=== PATIENT | female | born 1965 | race Caucasian/White ===

== ENCOUNTER 2016-12-29 18:09 | Observation (INO) | payer OTHER ==
[~2016-12-29] VITALS: Ht 157.5 cm; Wt 63.5 kg
[~2016-12-29 18:09] MED LIST: BACL10TA4 PO; GABA400C PO; HUM7525 SUBQ; METF500T PO; TRAM50TA1 PO; ZOLP5TAB1 PO
[2016-12-29 18:20] VITALS: BP 154/91
[2016-12-29 18:39] LABS: BASOPHILS # (AUTO) 0.3 K/uL (0.00-0.22); BASOPHILS % (AUTO) 2.1 % (0.0-2.0); EOSINOPHILS # (AUTO) 0.1 K/uL (0-0.4); EOSINOPHILS % (AUTO) 1.1 % (0.0-4.0); HEMATOCRIT 37.6 % (36-48); HEMOGLOBIN 12.5 g/dL (12.0-16.0); LYMPHOCYTES % (AUTO) 31.3 % (20.5-51.1); MEAN CORPUSCULAR HEMOGLOBIN 31 pg (27-31); MEAN CORPUSCULAR HGB CONC 33 g/dL (33-37); MEAN CORPUSCULAR VOLUME 92 fL (80-94); MONOCYTES # (AUTO) 0.5 K/uL (0.8-1.0); NEUTROPHILS # (AUTO) 7.8 K/uL (1.8-7.7); NEUTROPHILS % (AUTO) 61.5 % (42.2-75.2); PLATELET COUNT (AUTO) 463 K/uL (140-450); RED BLOOD CELL COUNT(AUTO) 4.09 MIL/uL (4.20-5.40); RED CELL DISTRIBUTION WIDTH 12.9 % (11.6-13.7); WHITE BLOOD COUNT (AUTO) 12.7 K/uL (4.8-10.8)
[2016-12-29 18:50] LABS: ANION GAP 12.6 (8-16); CARBON DIOXIDE 25.5 mmol/L (21-32); CREATININE 0.8 mg/dL (0.6-1.3); POTASSIUM 3.1 mmol/L (3.5-5.1)
[2016-12-29 18:56] LABS: ALBUMIN 3.4 g/dL (3.4-5.0); TOTAL BILIRUBIN 0.3 mg/dL (0.0-1.0)
[2016-12-29 18:57] LABS: PROTHROMBIN TIME 10.8 secs (10.8-13.4)
[2016-12-29] MEDS ORDERED: ASPIRIN 81 MG TAB.CHEW PO ONE (20:05)
[2016-12-29] MEDS ORDERED: CLOPIDOGREL 75 MG TAB PO ONE (20:05)
[2016-12-29] MEDS ORDERED: NACL 0.9% 1,000 ML IV ONE (20:05)
[2016-12-29] MEDS ORDERED: METOPROLOL 25 MG TAB PO ONE (20:40)
[2016-12-29] MEDS ORDERED: NITROGLYCERIN 2% 1 GM PKT TP SCH (20:45)
[2016-12-29] MEDS ORDERED: ACETAMINOPHEN 325 MG TAB PO PRN (20:45)
[2016-12-29] MEDS ORDERED: ONDANSETRON 4 MG/2 ML VIAL IVP PRN (20:45)
[2016-12-29] MEDS ORDERED: HYDROcodone/APAP 5/325 MG 1 TAB TAB PO PRN ×2 (20:45)
[2016-12-29] MEDS ORDERED: LORazepam 2 MG/ML VIAL IVP PRN (20:45)
[2016-12-29 21:53] VITALS: BP 150/94
[2016-12-29] MEDS: ALBUTEROL 0.083% 2.5 MG/3 ML NEBU INH SCH (22:11)
[2016-12-29 23:06] VITALS: BP 151/84
[2016-12-30] MEDS: ALBUTEROL 0.083% 2.5 MG/3 ML NEBU INH SCH ×2 (01:40→07:04)
[2016-12-30] MEDS: IPRATROPIUM 0.02% 0.5 MG/2.5 ML NEBU IH SCH ×3 (01:40→13:00)
[2016-12-30 02:57] LABS: CREATINE KINASE MB 0.1 ng/mL (0-3.6)
[2016-12-30 04:55] VITALS: BP 116/65
[2016-12-30 06:09] LABS: BASOPHILS # (AUTO) 0.2 K/uL (0.00-0.22); BASOPHILS % (AUTO) 1.5 % (0.0-2.0); EOSINOPHILS # (AUTO) 0.2 K/uL (0-0.4); EOSINOPHILS % (AUTO) 1.2 % (0.0-4.0); HEMATOCRIT 33.2 % (36-48); HEMOGLOBIN 11.3 g/dL (12.0-16.0); LYMPHOCYTES # (AUTO) 3.2 K/uL (2.5-16.5); LYMPHOCYTES % (AUTO) 23.5 % (20.5-51.1); MEAN CORPUSCULAR HEMOGLOBIN 31 pg (27-31); MEAN CORPUSCULAR HGB CONC 34 g/dL (33-37); MEAN CORPUSCULAR VOLUME 92 fL (80-94); MONOCYTES # (AUTO) 0.9 K/uL (0.8-1.0); MONOCYTES % (AUTO) 6.5 % (1.7-9.3); NEUTROPHILS # (AUTO) 9.1 K/uL (1.8-7.7); NEUTROPHILS % (AUTO) 67.3 % (42.2-75.2); PLATELET COUNT (AUTO) 373 K/uL (140-450); RED BLOOD CELL COUNT(AUTO) 3.62 MIL/uL (4.20-5.40); RED CELL DISTRIBUTION WIDTH 13.4 % (11.6-13.7); WHITE BLOOD COUNT (AUTO) 13.6 K/uL (4.8-10.8)
[2016-12-30 06:46] LABS: ALBUMIN 2.5 g/dL (3.4-5.0); ANION GAP 10.7 (8-16); CARBON DIOXIDE 23.4 mmol/L (21-32); CREATININE 0.8 mg/dL (0.6-1.3); MAGNESIUM 1.7 mg/dL (1.8-2.4); POTASSIUM 3.1 mmol/L (3.5-5.1); TOTAL BILIRUBIN 0.2 mg/dL (0.0-1.0)
[2016-12-30] MEDS ORDERED: DEXTROSE 50% 50 ML SYR IVP PRN (07:55)
[2016-12-30] MEDS ORDERED: INSULIN LISPRO SLIDING SCALE 100 UNITS/ML VIAL SUBQ PRN (07:55)
[2016-12-30 08:00] VITALS: BP 127/73
[2016-12-30] MEDS: MORPHINE SULFATE 2 MG/ML SYR IVP PRN ×2 (08:24→14:57)
[2016-12-30] MEDS ORDERED: INSULIN LISPRO 100 UNITS/ML VIAL SUBQ SCH ×2 (09:00→12:00)
[2016-12-30] MEDS ORDERED: POTASSIUM CHLORIDE 10 MEQ TABER PO SCH (09:00)
[2016-12-30] MEDS ORDERED: ENOXAPARIN 40 MG/0.4 ML SYR SUBQ SCH (09:00)
[2016-12-30] MEDS ORDERED: MAGNESIUM OXIDE 400 MG TAB PO SCH (09:00)
[2016-12-30] MEDS ORDERED: ZOLPIDEM 5 MG TAB PO PRN (10:00)
[2016-12-30] MEDS ORDERED: GABAPENTIN 100 MG CAP PO PRN (10:00)
[2016-12-30] MEDS ORDERED: traMADol 50 MG TAB PO PRN (10:00)
[2016-12-30] MEDS ORDERED: BLOOD GLUCOSE MONITORING 1 DEV DEV FS SCH (11:30)
[2016-12-30 12:00] VITALS: BP 111/61
[2016-12-30] MEDS ORDERED: NACL 0.9% IRR 250 ML BOTTLE IR SCH (13:00)
[2016-12-30 13:33] VITALS: BP 126/67
[2016-12-30] MEDS ORDERED: INFLUENZA VIRUS VACCINE QUAD 0.5 ML SYR IMVAC SCH (15:10)
[2016-12-30 16:07] VITALS: BP 134/73
[2016-12-30] MEDS ORDERED: INSULIN NPH HUM/REG INSULIN HM 100 UNIT/ML 10 ML VIAL SUBQ SCH (21:00)
[2016-12-30] MEDS ORDERED: INSULIN LISPRO SUBQ SCH (21:00)
[2016-12-30] MEDS ORDERED: metFORMIN 500 MG TAB PO SCH (21:00)
[2016-12-30] MEDS ORDERED: AMOXIL/CLAVULANATE 875/125 MG 1 TAB PO SCH (21:00)
[2016-12-30] MEDS ORDERED: [UNRECOGNIZED DRUG - OTHER] SUBQ SCH (21:00)
[2016-12-30] MEDS ORDERED: INSULIN LISPRO PROTAMINE SUBQ SCH (21:00)
[2016-12-31] MEDS ORDERED: REGADENOSON 0.4 MG/5 ML SYR IV SCH (09:00)
== END 2016-12-30 16:25 | disposition home or self-care (01) ==
LOC: MED 18:09 → MTU 20:48
PROVIDERS: ADMIT Hospitalist; ATTEND Hospitalist
DX: R07.2 Precordial pain (principal); D72.829 Elevated white blood cell count, unspecified; S21.202A Unspecified open wound of left back wall of thorax without penetration into thoracic cavity, initial encounter; E11.9 Type 2 diabetes mellitus without complications; E78.5 Hyperlipidemia, unspecified; E87.6 Hypokalemia; N25.89 Other disorders resulting from impaired renal tubular function; F17.210 Nicotine dependence, cigarettes, uncomplicated; I10 Essential (primary) hypertension
CPT/HCPCS: 36415; 71020; 80053; 82550; 82553; 82948; 83735; 83880; 84484; 85025; 85610; 85730; 87070; 87081; 87186; 90471; 90658; 93005; 93017; 93307; 94640; 94760; 96372; 96374; 96376; 99285; G0378; J1650; J1815; J2270; J7030; J7613; J7644; J2785

== ENCOUNTER 2017-01-17 13:16 | Inpatient (IN) | payer OTHER ==
[~2017-01-17] VITALS: Ht 157.5 cm; Wt 63.0 kg
[2017-01-17 13:29] VITALS: BP 158/94
--- NOTE | 2017-01-17 13:45 | NUR ---
PATIENT TO BED 8 AT THIS TIME.
--- NOTE | 2017-01-17 13:48 | NUR ---
Patient being evaluated by physician at bedside.
[2017-01-17] MEDS ORDERED: NACL 0.9% 1,000 ML IV ONE (14:15)
[2017-01-17] MEDS ORDERED: INSULIN HUMAN REGULAR 100 UNITS/ML 10 ML VIAL IVP ONE (14:15)
[2017-01-17 14:21] LABS: BASOPHILS # (AUTO) 0.3 K/uL (0.00-0.22); EOSINOPHILS # (AUTO) 0.2 K/uL (0-0.4); HEMATOCRIT 38.6 % (36-48); HEMOGLOBIN 12.7 g/dL (12.0-16.0); LYMPHOCYTES # (AUTO) 3.6 K/uL (2.5-16.5); MEAN CORPUSCULAR HEMOGLOBIN 29 pg (27-31); MEAN CORPUSCULAR HGB CONC 33 g/dL (33-37); MEAN CORPUSCULAR VOLUME 90 fL (80-94); MONOCYTES # (AUTO) 0.4 K/uL (0.8-1.0); NEUTROPHILS # (AUTO) 5.4 K/uL (1.8-7.7); PLATELET COUNT (AUTO) 373 K/uL (140-450); RED CELL DISTRIBUTION WIDTH 13.3 % (11.6-13.7); WHITE BLOOD COUNT (AUTO) 9.9 K/uL (4.8-10.8)
[2017-01-17 14:44] LABS: ALBUMIN 3.3 g/dL (3.4-5.0); ANION GAP 16.6 (8-16); CARBON DIOXIDE 20.9 mmol/L (21-32); CREATININE 0.9 mg/dL (0.6-1.3); POTASSIUM 3.5 mmol/L (3.5-5.1); TOTAL BILIRUBIN 0.2 mg/dL (0.0-1.0)
[2017-01-17] MEDS ORDERED: VANCOMYCIN 1,000 MG in DEXTROSE 5% 250 ML IV ONE (14:45)
[2017-01-17] MEDS ORDERED: PIPERACILLIN/TAZOBACTAM 3.375 GM in DEXTROSE 5% 50 ML IV ONE (14:45)
[2017-01-17] MEDS ORDERED: MORPHINE SULFATE 4 MG/ML SYR IVP ONE (14:55)
[2017-01-17] MEDS ORDERED: PIPERACILLIN/TAZOBACTAM 3.375 GM VIAL IV ONE (15:09)
[2017-01-17] MEDS ORDERED: VANCOMYCIN 1,000 MG VIAL ONE (15:10)
--- NOTE | 2017-01-17 15:55 | NUR ---
PT AMBULATORY TO RESTROOM WITH STEADY GAIT
[2017-01-17] MEDS: NACL 0.9% 1,000 ML IV SCH (16:01)
[2017-01-17] MEDS ORDERED: ACETAMINOPHEN 325 MG TAB PO PRN (16:05)
[2017-01-17] MEDS ORDERED: ONDANSETRON 4 MG/2 ML VIAL IVP PRN (16:05)
[2017-01-17] MEDS ORDERED: INSULIN LISPRO SLIDING SCALE 100 UNITS/ML VIAL SUBQ PRN (16:15)
--- NOTE | 2017-01-17 16:25 | NUR ---
Pt report given to ANA PITTMAN. Transfer of care at this time TO TELE RM 113
--- NOTE | 2017-01-17 16:45 | NUR ---
RECEIVED REPORT FROM ER NURSE. PT ARRIVED TO UNIT VIA GURNEY ACCOMPANIED BY RN, RISA, AND PT'S DAUGHTER. PT ARRIVED IN STABLE CONDITION. VS: BP 131/74 P 82 O2 SAT 99% ON RA, RR17, TEMP 98.4 F. ID BAND APPLIED. TELE MONITOR APPLIED. BED IN LOW POSITION, WHEELS LOCKED. INSTRUCTED PT DIAGNOSTIC RADIOLOGIC TECHNOLOGIST LIGHT USE. PT VERBALIZED UNDERSTANDING. WILL CONTINUE TO MONITOR.
[2017-01-17] MEDS ORDERED: DEXTROSE 50% 50 ML SYR IVP PRN (17:25)
[2017-01-17 17:42] VITALS: BP 131/74
--- NOTE | 2017-01-17 18:30 | NUR ---
CHECKED ON PT IN ROOM. DAUGHTER AT BEDSIDE. HISTORY WAS OBTAINED BY PT. BED IN LOW POSITION, CALL LIGHT WITHIN REACH. PT HAS NO COMPLAINTS AT THIS TIME WILL CONTINUE TO MONITOR.
--- NOTE | 2017-01-17 19:25 | NUR ---
ENDORSED PT TO PILOT FUEL ENGINEER NURSE NIKI AT BEDSIDE FOR CONTINUITY OF CARE. PT IS LYING IN BED. DAUGHTER IS AT BEDSIDE. PT IN STABLE CONDITION.
--- NOTE | 2017-01-17 19:26 | NUR ---
RECEIVED PT AWAKE ON BED, COMPLAINING OF BACK PAIN, WILL MEDICATE PRN, IVF INFUSING WELL, PLAN OF CARE DISCUSS, SAFETY MEASURES IN PLACE, CALL LIGHT WITHIN REACH.
[2017-01-17] MEDS: MORPHINE SULFATE 4 MG/ML SYR IVP PRN (19:34)
[2017-01-17] MEDS: INSULIN LISPRO SLIDING SCALE 100 UNITS/ML VIAL SUBQ PRN (20:13)
--- NOTE | 2017-01-17 20:30 | NUR ---
BLOOD SUGAR CHECKED WITH 374 RESULT, COVERAGE GIVEN, SNACK PROVIDED, ALL NEEDS ATTENDED.
[2017-01-17] MEDS ORDERED: PIPERACILLIN/TAZOBACTAM 3.375 GM in DEXTROSE 5% 50 ML IV SCH (21:00)
[2017-01-17] MEDS: BLOOD GLUCOSE MONITORING 1 DEV DEV FS SCH (21:04)
--- NOTE | 2017-01-17 21:30 | NUR ---
PT AMBULATORY TO BR WITH STEADY GAIT AND VOIDED FREELY, MONITORED CLOSELY.
[2017-01-17 23:07] LABS: APPEARANCE,URINE CLEAR (CLEAR); BILIRUBIN,URINE NEGATIVE (NEGATIVE); BLOOD, URINE NEGATIVE (NEGATIVE); COLOR,URINE YELLOW (YELLOW); LEUKOCYTE ESTERASE ,URINE NEGATIVE (NEGATIVE); NITRITE, URINE NEGATIVE (NEGATIVE); UGLUCOSE 2+ (NEGATIVE)
[2017-01-17 23:31] LABS: RBC,URINE NONE SEEN /HPF (0-5); WBC,URINE 0-5 (RARE) /HPF (0-5); YEAST,URINE Rare /HPF (None Seen)
[2017-01-18] VITALS: BP 122/69
[2017-01-18] MEDS: MORPHINE SULFATE 4 MG/ML SYR IVP PRN (01:49)
[2017-01-18] MEDS: PIPER/TAZO 3.375GM/D5W PREMIX 50 ML IV SCH ×3 (01:49→17:13)
--- NOTE | 2017-01-18 01:50 | NUR ---
PT IN PAIN, MEDICATED PRN WITH MORPHINE IVP, DRESSING CHANGE DONE TO OPEN WOUND TO THE BACK, DUE ZOSYN IVPB ADMINISTERED, MONITORED CLOSELY.
[2017-01-18] MEDS: NACL 0.9% 1,000 ML IV SCH ×4 (02:01→18:19)
[2017-01-18] MEDS: MORPHINE SULFATE 2 MG/ML SYR IVP PRN ×4 (05:53→20:27)
[2017-01-18] MEDS: INSULIN LISPRO SLIDING SCALE 100 UNITS/ML VIAL SUBQ PRN ×4 (05:59→20:32)
--- NOTE | 2017-01-18 06:00 | NUR ---
BLOOD SUGAR CHECKED WITH 250 RESULT, COVERAGE GIVEN, MEDICATED PRN FOR PAIN, MONITORED CLOSELY.
[2017-01-18] MEDS: BLOOD GLUCOSE MONITORING 1 DEV DEV FS SCH ×4 (06:34→20:34)
[2017-01-18 06:45] LABS: BASOPHILS # (AUTO) 0.3 K/uL (0.00-0.22); BASOPHILS % (AUTO) 2.7 % (0.0-2.0); EOSINOPHILS # (AUTO) 0.2 K/uL (0-0.4); EOSINOPHILS % (AUTO) 1.8 % (0.0-4.0); HEMATOCRIT 34.3 % (36-48); HEMOGLOBIN 11.5 g/dL (12.0-16.0); LYMPHOCYTES # (AUTO) 3.8 K/uL (2.5-16.5); MEAN CORPUSCULAR HEMOGLOBIN 30 pg (27-31); MEAN CORPUSCULAR HGB CONC 33 g/dL (33-37); MEAN CORPUSCULAR VOLUME 91 fL (80-94); MONOCYTES # (AUTO) 0.5 K/uL (0.8-1.0); MONOCYTES % (AUTO) 4.4 % (1.7-9.3); NEUTROPHILS # (AUTO) 6.1 K/uL (1.8-7.7); NEUTROPHILS % (AUTO) 56.1 % (42.2-75.2); PLATELET COUNT (AUTO) 323 K/uL (140-450); RED BLOOD CELL COUNT(AUTO) 3.78 MIL/uL (4.20-5.40); RED CELL DISTRIBUTION WIDTH 13.5 % (11.6-13.7); WHITE BLOOD COUNT (AUTO) 10.9 K/uL (4.8-10.8)
[2017-01-18 07:00] LABS: ALBUMIN 2.7 g/dL (3.4-5.0); ANION GAP 13.8 (8-16); CARBON DIOXIDE 21.4 mmol/L (21-32); CREATININE 0.7 mg/dL (0.6-1.3); POTASSIUM 3.2 mmol/L (3.5-5.1); TOTAL BILIRUBIN 0.2 mg/dL (0.0-1.0)
--- NOTE | 2017-01-18 07:12 | NUR ---
PT SLEEPING, NO SIGNS OF DISTRESS, REPORT GIVEN TO WILLIE MULLEN FOR CONTINUITY OF CARE.
--- NOTE | 2017-01-18 07:12 | NUR ---
ASSUMED CONTINUITY OF CARE. NO SIGNS AND SYMPTOMS OF ACUTE DISTRESS NOTED. INITIAL ASSESSMENT DONE. KEEP COMFORTABLE ON BED. EXPLAINED DIAGNOSIS, PLAN OF CARE, PAIN MANAGEMENT TEACHING, USE OF CALL LIGHT/BED/TV/BATHROOM. VERBALIZED UNDERSTANDING. FALL PRECAUTION APPLIED. CALL LIGHT WITHIN REACH.
--- NOTE | 2017-01-18 07:15 | NUR ---
Patient's Plan of Care was discussed and reviewed with SPRINKLER TENDER: WILLIE KELLY.
[2017-01-18 08:00] VITALS: BP 123/72
--- NOTE | 2017-01-18 08:06 | NUR ---
DR. BRANTLEY CAME, CHECKED PT. CHART, AND SEEN PT.. INFORMED DR. BRANTLEY OF PT. K LEVEL 3.2.
[2017-01-18] MEDS ORDERED: VANCOMYCIN PER PHARMACY MC PRN (08:20)
[2017-01-18] MEDS ORDERED: POTASSIUM CHLORIDE 10 MEQ TABER PO SCH (08:30)
[2017-01-18] MEDS: ENOXAPARIN 30 MG/0.3 ML SYR SUBQ SCH (08:31)
[2017-01-18] MEDS: VANCOMYCIN 750 MG in DEXTROSE 5% 250 ML IV SCH ×2 (09:16→20:27)
--- NOTE | 2017-01-18 09:18 | NUR ---
PATIENT HAS BEEN SCREENED AND CATEGORIZED HIGH NUTRITION RISK. PATIENT WILL BE SEEN WITHIN 1-2 DAYS OF ADMISSION. 01/18/17-01/19/[address]
--- NOTE | 2017-01-18 11:16 | NUR ---
01/18/17 RD INITIAL ASSESSMENT COMPLETED PLEASE REFER TO NUTRITION ASSESSMENT UNDER CARE ACTIVITY FOR ESTIMATED NUTRITIONAL NEEDS. 1. CHANGE DIET TO 60G CONSISTENT CARBOHYDRATE DIET 2. PROVIDE NUTRITION THERAPY EDUCATION NEEDED 3. RD TO FOLLOW-UP 3-5 DAYS, MODERATE RISK OLI FUENTES RD
--- NOTE | 2017-01-18 11:45 | NUR ---
WOUND CARE EVALUATION NOTES: REASON FOR EVALUATION: RIGHT LOWER BACK ABSCESS COMPLETE SKIN ASSESSMENT DONE ON THIS 51Y/O FEMALE PATIENT FROM HOME TO [facility], WITH INITIAL DIAGNOSIS OF RIGHT LOWER BACK PAIN. PAST MEDICAL HISTORY INCLUDE DM I AND CHOLECYSTECTOMY. ALL ABOVE INFORMATION WAS OBTAINED FROM THE ADMISSION H&P. LABS ARE WBC 10.9, H/H 11.5/34.3, GLUCOSE 237, ALBUMIN 2.7. CURRENT MEDS INCLUDE VANCOMYCIN, ENOXAPARIN, INSULIN AND MORPHINE SULFATE. PATIENT IS AWAKE, ALERT, AND ABLE TO FOLLOW COMMANDS. SKIN WARM TO TOUCH WNL, SHORT TOENAILS, NO EDEMA, NO HAIR GROWTH AND BILATERAL PEDAL PULSES PRESENT. AMBULATORY, WALK TO BR. PLAN OF CARE DISCUSS WITH PRIMARY RN AND PT. PT VERBALIZES UNDERSTANDING. INTEGUMENTARY: RIGHT LOWER BACK OPEN WOUND 2X3.5 CM DEPTH UTD, 100% SOFT BROWN SLOUGH TISSUE COVER ALL OVER WOUND BED, PERIWOUND ERYTHEMA, WARM TO TOUCH, PAIN LEVEL 2/10, SMALL AMOUNT PURULENT DRAINAGE WITH ODOR AFTER CLEANSING RECOMMENDATIONS: -DEBRIDEMENT TO WOUND BED -CLEANSE RIGHT LOWER BACK WITH NS AND GAUZE, PAT DRY, APPLY THERAHONEY GEL,COVER WITH ADAPTIC AND DRY DRESSING SECURE WITH TAPE Q DAY AND PRN IF SOILING -ASSESS AND MONITOR SKIN CONDITION Q SHIFT -OFFLOAD BILATERAL HEELS BY PLACING PILLOWS UNDER CALVES AT ALL TIMES, UNLESS OTHERWISE CONTRAINDICATED -PRESSURE REDISTRIBUTION SURFACE THERAPY -KEEP SKIN CLEAN AND DRY AT ALL TIMES. RECOMMENDATIONS DISCUSSED WITH PRIMARY RN WILL FOLLOW UP PATIENT Q 7 -10 DAYS AND PRN. PLEASE CONTACT WOUND CARE NURSE FOR ANY CONCERNS AND CHANGES IN WOUND CONDITION Addendum: 01/18/17 at 1413 by Scott Gabriel RN (Grace) CORRECTION: RIGHT LOWER BACK OPEN WOUND 2X5.3 CM DEPTH UTD,
[2017-01-18 12:00] VITALS: BP 111/69
--- NOTE | 2017-01-18 12:26 | NUR ---
FAXED INITIAL REVIEW TO [facility] [phone] PHONE ANA [phone]
[2017-01-18] MEDS ORDERED: THERAHONEY GEL 42.5 GM TP PRN (12:35)
[2017-01-18] MEDS: THERAHONEY GEL 42.5 GM TP SCH (13:00)
--- NOTE | 2017-01-18 13:40 | NUR ---
DR. ULRICH CAME, CHECKED PT. CHART, SEEN PT., AND EXPLAINED PT. ABOUT PROCEDURE FOR DEBRIDEMENT RIGHT INFERIOR FLANK WOUND ON 01/19/17.
--- NOTE | 2017-01-18 19:08 | NUR ---
REPORT GIVEN TO NIKI BLANCO. IVF INFUSING WELL. IN STABLE CONDITION.
--- NOTE | 2017-01-18 19:09 | NUR ---
RECEIVED PT AWAKE, TOLERABLE PAIN 2/10 AT THIS TIME, DRESSING TO RT BACK DRY AND INTACT, INSTRUCTED NPO AFTER MIDNIGHT FOR SX TOMORROW, VERBALIZED UNDERSTANDING, IVF INFUSING WELL, PLAN OF CARE DISCUSSED, SAFETY MEASURES IN PLACE, CALL LIGHT WITHIN REACH.
--- NOTE | 2017-01-18 20:40 | NUR ---
BLOOD SUGAR CHECKED WITH 263 RESULT, COVERAGE GIVEN, SNACK PROVIDED, MEDICATED PRN FOR PAIN, DUE IV ANTIBIOTIC ADMINISTERED, ALL NEEDS ATTENDED.
[2017-01-19] VITALS: BP 124/70
[2017-01-19] MEDS: PIPER/TAZO 3.375GM/D5W PREMIX 50 ML IV SCH ×2 (01:23→09:21)
[2017-01-19] MEDS: MORPHINE SULFATE 2 MG/ML SYR IVP PRN ×2 (01:28→05:30)
--- NOTE | 2017-01-19 01:30 | NUR ---
PT COMPLAINING OF PAIN, MEDICATED PRN WITH MORPHINE IVP, DUE ZOSYN IVPB ADMINISTERED, MAINTAINED ON NPO FOR SX IN AM, MONITORED CLOSELY.
--- NOTE | 2017-01-19 03:47 | NUR ---
ROUNDED ON PT, SLEEPING, NO SIGNS OF DISTRESS, IVF INFUSING WELL, MONITORED CLOSELY.
--- NOTE | 2017-01-19 05:30 | NUR ---
PT MEDICATED PRN FOR PAIN, DRESSING SLIGHTLY SOAKED, DRESSING CHANGE DONE TO RT BACK WOUND, MAINTAIN ON NPO, IVF INFUSING WELL, MONITORED CLOSELY.
[2017-01-19 06:23] LABS: BASOPHILS # (AUTO) 0.3 K/uL (0.00-0.22); BASOPHILS % (AUTO) 2.8 % (0.0-2.0); EOSINOPHILS # (AUTO) 0.2 K/uL (0-0.4); EOSINOPHILS % (AUTO) 1.7 % (0.0-4.0); HEMATOCRIT 31.3 % (36-48); HEMOGLOBIN 10.2 g/dL (12.0-16.0); LYMPHOCYTES # (AUTO) 4.5 K/uL (2.5-16.5); LYMPHOCYTES % (AUTO) 42.8 % (20.5-51.1); MEAN CORPUSCULAR HEMOGLOBIN 30 pg (27-31); MEAN CORPUSCULAR HGB CONC 33 g/dL (33-37); MEAN CORPUSCULAR VOLUME 92 fL (80-94); MONOCYTES # (AUTO) 0.6 K/uL (0.8-1.0); MONOCYTES % (AUTO) 5.3 % (1.7-9.3); NEUTROPHILS % (AUTO) 47.4 % (42.2-75.2); PLATELET COUNT (AUTO) 313 K/uL (140-450); RED BLOOD CELL COUNT(AUTO) 3.42 MIL/uL (4.20-5.40); RED CELL DISTRIBUTION WIDTH 13.6 % (11.6-13.7); WHITE BLOOD COUNT (AUTO) 10.6 K/uL (4.8-10.8)
[2017-01-19 06:50] LABS: ALBUMIN 2.5 g/dL (3.4-5.0); ANION GAP 14.5 (8-16); CREATININE 0.8 mg/dL (0.6-1.3); POTASSIUM 3.5 mmol/L (3.5-5.1); TOTAL BILIRUBIN 0.2 mg/dL (0.0-1.0)
[2017-01-19] MEDS: INSULIN LISPRO SLIDING SCALE 100 UNITS/ML VIAL SUBQ PRN (06:54)
[2017-01-19] MEDS: NACL 0.9% 1,000 ML IV SCH (06:54)
--- NOTE | 2017-01-19 06:55 | NUR ---
BLOOD SUGAR CHECKED WITH 191 RESULT, COVERAGE GIVEN, NO SIGNS OF DISTRESS, MONITORED CLOSELY.
[2017-01-19] MEDS: BLOOD GLUCOSE MONITORING 1 DEV DEV FS SCH ×2 (06:58→11:30)
[2017-01-19 07:00] LABS: PROTHROMBIN TIME 9.9 secs (10.8-13.4)
--- NOTE | 2017-01-19 07:25 | NUR ---
PT SLEEPING, EASILY AROUSABLE, NO DISTRESS NOTED, REPORT GIVEN TO TOYA SHERIDAN FOR CONTINUITY OF CARE.
--- NOTE | 2017-01-19 07:27 | NUR ---
RECEIVED REPORT FROM TOYA PRINCE AT BEDSIDE. PT SLEEPING IN BED. AAOX4. NO S/S OF ACUTE DISTRESS. PT DENIES PAIN. IV SITE PATENT AND INTACT. PLAN OF CARE DISCUSSED WITH PT. PT VERBALIZED UNDERSTANDING. CALL LIGHT WITHIN REACH. SAFETY MEASURES ENSURED. WILL CONTINUE TO MONITOR.
[2017-01-19 08:02] VITALS: BP 118/73
[2017-01-19] MEDS: ENOXAPARIN 30 MG/0.3 ML SYR SUBQ SCH (09:00)
--- NOTE | 2017-01-19 09:23 | NUR ---
AM MEDICATIONS GIVEN WITH EDUCATION. PT DENIES PAIN. PT VERBALIZED UNDERSTANDING. LOVENOX HELD DUE TO SURGERY. WILL CONTINUE TO MONITOR.
[2017-01-19] MEDS: VANCOMYCIN 750 MG in DEXTROSE 5% 250 ML IV SCH (10:05)
[2017-01-19 10:11] VITALS: BP 118/73
[2017-01-19] MEDS: BUPIVACAINE-MPF 0.25% 30 ML VIAL INJ ONE ×2 (11:30→12:25)
--- NOTE | 2017-01-19 11:44 | NUR ---
PT TAKEN OFF UNIT TO OR.
[2017-01-19] MEDS ORDERED: MIDAZOLAM 2 MG/2 ML VIAL ONE (12:01)
[2017-01-19] MEDS ORDERED: MEPERIDINE 50 MG/ML SYR ONE (12:02)
[2017-01-19] MEDS ORDERED: fentaNYL 0.05 MG/ML VIAL ONE (12:02)
[2017-01-19] MEDS ORDERED: NACL 0.9% 1,000 ML IV SCH (12:27)
[2017-01-19] MEDS ORDERED: ONDANSETRON 4 MG/2 ML VIAL IVP PRN (12:30)
[2017-01-19] MEDS ORDERED: MEPERIDINE 25 MG/ML SYR IVP PRN (12:30)
[2017-01-19] MEDS ORDERED: HYDROmorphone 1 MG/ML AMP IVP PRN (12:30)
[2017-01-19] MEDS ORDERED: diphenhydrAMINE 50 MG/ML VIAL IVP PRN (12:30)
--- NOTE | 2017-01-19 12:34 | NUR ---
CM NOTE CONCURRENT REVIEW FAXED TO [facility] ([phone], ATTN: ANA [phone]) AND [facility] (FAX: [phone], ATTN: RALPH [phone] [id number])
[2017-01-19] MEDS ORDERED: BLOOD GLUCOSE MONITORING 1 DEV DEV FS SCH (12:44)
[2017-01-19] MEDS ORDERED: INSULIN HUMAN REGULAR 100 UNITS/ML 10 ML VIAL SUBQ ONE (12:55)
[2017-01-19] MEDS: INSULIN LISPRO 100 UNITS/ML VIAL SUBQ SCH ×2 (12:57→13:05)
[2017-01-19] MEDS: THERAHONEY GEL 42.5 GM TP SCH (13:00)
[2017-01-19 13:30] VITALS: BP 138/95
--- NOTE | 2017-01-19 13:30 | NUR ---
PT BACK FROM OR. NO S/S OF ACUTE DISTRESS. PT DENIES PAIN AT THIS TIME. IV SITE PATENT AND INTACT. DRESSING DRY AND INTACT. CALL LIGHT WITHIN REACH. SAFETY MEASURES ENSURED. WILL CONTINUE TO MONITOR.
[2017-01-19] MEDS ORDERED: ACET-2869 PO ×2 (13:41→13:43)
--- NOTE | 2017-01-19 14:19 | NUR ---
PT CLEARED FOR DISCHARGE HOME. NO S/S OF ACUTE DISTRESS. PT DENIES PAIN. DISCHARGE INSTRUCTIONS PROVIDED. PT VERBALIZED UNDERSTANDING. IV TAKEN OUT. TIP INTACT. PT AWAITING RIDE FROM SISTER. PT OFFERED WHEELCHAIR BUT REFUSED. PT REMAINS STABLE.
== END 2017-01-19 14:30 | disposition home or self-care (01) | DRG 364 ==
LOC: MED 13:16 → MTU 16:12
PROVIDERS: ADMIT Hospitalist; ATTEND Hospitalist
PROC: 0J970ZZ Drainage of Back Subcutaneous Tissue and Fascia, Open Approach (ICD-10-PCS; 2017-01-19)
PROC: 0JB70ZZ Excision of Back Subcutaneous Tissue and Fascia, Open Approach (ICD-10-PCS; principal; 2017-01-19 09:35)
DX: L02.212 Cutaneous abscess of back [any part, except buttock and flank] (principal); E43 Unspecified severe protein-calorie malnutrition; E10.40 Type 1 diabetes mellitus with diabetic neuropathy, unspecified; I10 Essential (primary) hypertension; L98.429 Non-pressure chronic ulcer of back with unspecified severity; E10.65 Type 1 diabetes mellitus with hyperglycemia; L03.312 Cellulitis of back [any part except buttock and flank]; F17.200 Nicotine dependence, unspecified, uncomplicated; Z90.49 Acquired absence of other specified parts of digestive tract; Z71.6 Tobacco abuse counseling; Z79.4 Long term (current) use of insulin; Z79.899 Other long term (current) drug therapy
CPT/HCPCS: 36415; 80053; 80202; 81001; 82009; 82948; 83605; 84703; 85025; 85610; 85730; 87040; 87070; 87075; 87081; 87186; 87205; 93005; 96361; 96374; 96375; 99285; J1650; J1815; J2175; J2250; J2270; J2543; J3010; J3370; J3490; J7030; J7060

== ENCOUNTER 2017-02-08 00:30 | Inpatient (IN) | payer OTHER ==
[~2017-02-08] VITALS: Ht 157.5 cm; Wt 66.7 kg
[~2017-02-08 00:30] MED LIST changes: +ACET-2869 PO
[2017-02-08 00:43] VITALS: BP 121/93
[2017-02-08] MEDS ORDERED: LIDOCAINE/EPI 2% 1:100000 20 ML VIAL INJ ONE (01:05)
[2017-02-08] MEDS ORDERED: KETOROLAC 30 MG/ML VIAL IVP ONE (01:05)
[2017-02-08] MEDS ORDERED: NACL 0.9% 2,000 ML IV ONE (01:05)
[2017-02-08] MEDS ORDERED: CLINDAMYCIN 600 MG in DEXTROSE 5% 50 ML IV ONE (01:10)
[2017-02-08] MEDS ORDERED: INSULIN HUMAN REGULAR 100 UNITS/ML 10 ML VIAL IVP ONE (01:10)
[2017-02-08 01:18] LABS: BASOPHILS # (AUTO) 0.5 K/uL (0.00-0.22); BASOPHILS % (AUTO) 2.7 % (0.0-2.0); EOSINOPHILS # (AUTO) 0.1 K/uL (0-0.4); EOSINOPHILS % (AUTO) 0.8 % (0.0-4.0); HEMATOCRIT 37.2 % (36-48); LYMPHOCYTES # (AUTO) 3.1 K/uL (2.5-16.5); LYMPHOCYTES % (AUTO) 18.3 % (20.5-51.1); MEAN CORPUSCULAR HEMOGLOBIN 29 pg (27-31); MEAN CORPUSCULAR HGB CONC 32 g/dL (33-37); MEAN CORPUSCULAR VOLUME 91 fL (80-94); MONOCYTES # (AUTO) 0.5 K/uL (0.8-1.0); NEUTROPHILS # (AUTO) 12.8 K/uL (1.8-7.7); NEUTROPHILS % (AUTO) 75.2 % (42.2-75.2); PLATELET COUNT (AUTO) 297 K/uL (140-450); RED CELL DISTRIBUTION WIDTH 14.2 % (11.6-13.7)
[2017-02-08 01:35] LABS: ANION GAP 15.4 (8-16); CARBON DIOXIDE 22.6 mmol/L (21-32)
--- NOTE | 2017-02-08 01:35 | NUR ---
51 Y/O F W/C/O ABCESS TO L UPPER BACK, FEVER AND CHILLS X 3 DAYS. MED HX DM. DENIES N/V/D; SKIN IS PINK/WARM/DRY; AAOX4 WITH EVEN AND STEADY GAIT; LUNGS CLEAR BL; HR EVEN AND REGULAR; PT DENIES ANY CP, SOB, OR COUGH AT THIS TIME; PATIENT STATES PAIN OF 8/10 AT THIS TIME; VSS; PATIENT POSITIONED FOR COMFORT; HOB ELEVATED; BEDRAILS UP X2; BED DOWN. ER MD MADE AWARE OF PT STATUS.
[2017-02-08] MEDS ORDERED: CLINDAMYCIN 600 MG/4 ML VIAL ONE (01:46)
[2017-02-08] MEDS ORDERED: fentaNYL 0.05 MG/ML VIAL IVP ONE (02:00)
[2017-02-08] MEDS ORDERED: fentaNYL 0.05 MG/ML VIAL IM ONE (02:00)
[2017-02-08] MEDS ORDERED: fentaNYL 0.05 MG/ML VIAL ONE (02:08)
[2017-02-08] MEDS ORDERED: NACL 0.9% 1,000 ML IV ONE ×2 (02:10→03:00)
[2017-02-08] MEDS ORDERED: PIPERACILLIN/TAZOBACTAM 3.375 GM in DEXTROSE 5% 50 ML IV ONE (02:10)
[2017-02-08] MEDS ORDERED: KCL 20 MEQ/WATER INJ PREMIX 100 ML IV ONE (02:15)
[2017-02-08] MEDS ORDERED: PIPERACILLIN/TAZOBACTAM 3.375 GM VIAL IV ONE ×2 (02:26→05:39)
--- NOTE | 2017-02-08 02:33 | NUR ---
Patient noted to have existing wounds upon arrival to ER. Photos taken of wound and placed in chart. Wound covered with dressing. Physician informed.
[2017-02-08] MEDS ORDERED: ONDANSETRON 4 MG/2 ML VIAL IVP ONE (02:55)
[2017-02-08] MEDS ORDERED: MORPHINE SULFATE 4 MG/ML SYR IVP ONE (02:55)
[2017-02-08] MEDS: NACL 0.9% 1,000 ML IV SCH ×3 (03:41→23:45)
[2017-02-08] MEDS ORDERED: ONDANSETRON 4 MG/2 ML VIAL IVP PRN (03:45)
[2017-02-08] MEDS ORDERED: ACETAMINOPHEN 325 MG TAB PO PRN (03:45)
--- NOTE | 2017-02-08 04:17 | NUR ---
Patient will be admitted to care of DR BRANTLEY. Admited to MS 108B. Will go to room 108B. Belongings list completed. Report to MAGDY PITTMAN .
[2017-02-08 04:30] VITALS: BP 113/70
--- NOTE | 2017-02-08 04:30 | NUR ---
PATIENT ADMITTED TO THE UNIT FROM ER. PATIENT IS AWAKE, ALERT AND ORIENTED. NO SIGNS AND SYMPTOMS OF DISTRESS NOTED. PT COMPLAINS OF 6/10 LEFT SHOULDER PAIN. PATIENT IS AMBULATORY. IV SITE NOTED ON RIGHT AC. IVF INFUSING WELL. BED IN LOWEST POSITION, SIDE RAILS UP AND CALL LIGHT WITHIN REACH. WILL CONTINUE TO MONITOR.
[2017-02-08] MEDS ORDERED: PIPERACILLIN/TAZOBACTAM 3.375 GM in DEXTROSE 5% 50 ML IV SCH (05:00)
[2017-02-08] MEDS ORDERED: DEXTROSE 50% 50 ML SYR IVP PRN (05:45)
[2017-02-08] MEDS: MORPHINE SULFATE 2 MG/ML SYR IVP PRN ×4 (05:49→20:03)
[2017-02-08] MEDS: INSULIN LISPRO SLIDING SCALE 100 UNITS/ML VIAL SUBQ PRN ×4 (06:09→20:22)
--- NOTE | 2017-02-08 06:09 | NUR ---
GLUCOSE CHECK DONE. LEVEL IS AT 435. NOTIFIED DR. BRANTLEY. ORDERED TO GIVE PT 10 UNITS HUMALOG.
[2017-02-08] MEDS: BLOOD GLUCOSE MONITORING 1 DEV DEV FS SCH ×4 (06:55→20:06)
[2017-02-08 07:04] LABS: BASOPHILS # (AUTO) 0.3 K/uL (0.00-0.22); BASOPHILS % (AUTO) 2.2 % (0.0-2.0); EOSINOPHILS # (AUTO) 0.1 K/uL (0-0.4); EOSINOPHILS % (AUTO) 0.9 % (0.0-4.0); HEMATOCRIT 33.5 % (36-48); HEMOGLOBIN 11.2 g/dL (12.0-16.0); LYMPHOCYTES # (AUTO) 2.9 K/uL (2.5-16.5); LYMPHOCYTES % (AUTO) 22.4 % (20.5-51.1); MEAN CORPUSCULAR HEMOGLOBIN 30 pg (27-31); MEAN CORPUSCULAR HGB CONC 34 g/dL (33-37); MEAN CORPUSCULAR VOLUME 90 fL (80-94); MONOCYTES # (AUTO) 0.9 K/uL (0.8-1.0); MONOCYTES % (AUTO) 6.6 % (1.7-9.3); NEUTROPHILS # (AUTO) 8.9 K/uL (1.8-7.7); NEUTROPHILS % (AUTO) 67.9 % (42.2-75.2); PLATELET COUNT (AUTO) 258 K/uL (140-450); RED BLOOD CELL COUNT(AUTO) 3.72 MIL/uL (4.20-5.40); RED CELL DISTRIBUTION WIDTH 14.2 % (11.6-13.7); WHITE BLOOD COUNT (AUTO) 13.1 K/uL (4.8-10.8)
--- NOTE | 2017-02-08 07:18 | NUR ---
PATIENT ENDORSED TO MORNING NURSE. PATIENT IS IN STABLE CONDITION
--- NOTE | 2017-02-08 07:25 | NUR ---
RECEIVED PT IN BED. ASLEEP. AROUSABLE TO VOICE. ALERT ORIENTEDX4. NO SOB NOTED. DENIES ANY PAIN OR DISCOMFORT AT THIS TIME. SAFETY PRECAUTION IN PLACE. CALL LIGHT WITHIN REACH.
[2017-02-08 07:46] LABS: ALBUMIN 2.6 g/dL (3.4-5.0); ANION GAP 16.2 (8-16); CREATININE 0.7 mg/dL (0.6-1.3); POTASSIUM 3.2 mmol/L (3.5-5.1); TOTAL BILIRUBIN 0.2 mg/dL (0.0-1.0)
[2017-02-08 08:00] VITALS: BP 119/72
[2017-02-08] MEDS: ENOXAPARIN 40 MG/0.4 ML SYR SUBQ SCH (09:13)
--- NOTE | 2017-02-08 10:14 | NUR ---
PATIENT HAS BEEN SCREENED AND CATEGORIZED HIGH NUTRITION RISK. PATIENT WILL BE SEEN WITHIN 1-2 DAYS OF ADMISSION. 02/08/17-02/09/[address]
--- NOTE | 2017-02-08 12:00 | NUR ---
DRESSING ON RIGHT SHOULDER WOUND CHANGED, SEROSANGUINEOUS DRAINAGE NOTED. MINIMAL AMOUNT GOOD SKIN CARE PROVIDED.
[2017-02-08] MEDS: CLINDAMYCIN 600 MG in DEXTROSE 5% 50 ML IV SCH ×2 (12:01→21:01)
[2017-02-08] MEDS: PIPER/TAZO 3.375GM/D5W PREMIX 50 ML IV SCH ×2 (12:55→20:04)
[2017-02-08] MEDS ORDERED: POTASSIUM CHLORIDE 10 MEQ TABER PO SCH (14:00)
[2017-02-08 16:00] VITALS: BP 134/77
--- NOTE | 2017-02-08 19:20 | NUR ---
RECEIVED HANDOFF REPORT FROM AM RN. PATIENT A&OX4. PATIENT STATES PAIN 6/10 WILL MEDICATE ORDERED. IV SITE PATENT AND INTACT. DRESSING DRY AND INTACT. NO SIGNS OR SYMPTOMS OF ACUTE DISTRESS NOTED. CALL LIGHT WITHIN REACH. WILL CONTINUE TO MONITOR.
--- NOTE | 2017-02-08 19:40 | NUR ---
PT KEPT, CLEAN, DRY AND COMFORTABLE, NEEDS ATTENDED. ENDORSED TO NEXT SHIFT, PT ON STABLE CONDITION, FOR CONTINUITY OF CARE.
--- NOTE | 2017-02-08 20:13 | NUR ---
PM MEDS GIVEN WITH EDUCATION. PATIENT VERBALIZED UNDERSTANDING. PATIENT BLOOD SUGAR WAS 423 DR. BRANTLEY NOTIFIED AND ORDERED SLIDING SCALE IN ADDITION TO LANTUS 10 UNITS TO BE STARTED IN THE AM. NO SIGNS OR SYMPTOMS OF ACUTE DISTRESS NOTED. CALL LIGHT WITHIN REACH. WILL CONTINUE TO MONITOR.
[2017-02-08] MEDS ORDERED: INSULIN DETEMIR 100 UNITS/ML 10 ML VIAL SUBQ SCH (20:15)
--- NOTE | 2017-02-08 20:30 | NUR ---
DR. ULRICH IN TO SEE PATIENT.
[2017-02-09] VITALS: BP 92/59
--- NOTE | 2017-02-09 02:27 | NUR ---
PATIENT RESTING IN BED. PATIENT DENIES PAIN. NO SIGNS OR SYMPTOMS OF ACUTE DISTRESS NOTED CALL LIGHT WITHIN REACH. WILL CONTINUE TO MONITOR.
[2017-02-09 03:12] VITALS: BP 108/66
[2017-02-09] MEDS: MORPHINE SULFATE 2 MG/ML SYR IVP PRN ×3 (03:15→15:30)
[2017-02-09] MEDS: CLINDAMYCIN 600 MG in DEXTROSE 5% 50 ML IV SCH ×3 (05:03→21:50)
--- NOTE | 2017-02-09 05:09 | NUR ---
PATIENT RESTING IN BED. PATIENT DENIES PAIN. NO SIGNS OR SYMPTOMS OF ACUTE DISTRESS NOTED. CALL LIGHT WITHIN REACH. WILL CONTINUE TO MONITOR.
[2017-02-09] MEDS: PIPER/TAZO 3.375GM/D5W PREMIX 50 ML IV SCH ×3 (05:55→20:20)
[2017-02-09] MEDS: BLOOD GLUCOSE MONITORING 1 DEV DEV FS SCH ×4 (07:01→21:00)
[2017-02-09] MEDS: INSULIN LISPRO SLIDING SCALE 100 UNITS/ML VIAL SUBQ PRN ×3 (07:01→22:32)
--- NOTE | 2017-02-09 07:35 | NUR ---
ENDORSED PLAN OF CARE TO AM RN. PATIENT IN STABLE CONDITION. SAFETY MEASURES ENSURED. NO SIGNS OR SYMPTOMS OF ACUTE DISTRESS NOTED. CALL LIGHT WITHIN REACH.
[2017-02-09 07:41] LABS: ALBUMIN 2.1 g/dL (3.4-5.0); CARBON DIOXIDE 19.3 mmol/L (21-32); CREATININE 0.6 mg/dL (0.6-1.3); POTASSIUM 3.3 mmol/L (3.5-5.1); TOTAL BILIRUBIN 0.4 mg/dL (0.0-1.0)
[2017-02-09 07:44] LABS: WHITE BLOOD COUNT (AUTO) 13.6 K/uL (4.8-10.8)
[2017-02-09 07:45] LABS: HEMATOCRIT 29.1 % (36-48); HEMOGLOBIN 9.4 g/dL (12.0-16.0); LYMPHOCYTES % (AUTO) 27.3 % (20.5-51.1); MEAN CORPUSCULAR HEMOGLOBIN 30 pg (27-31); MEAN CORPUSCULAR HGB CONC 32 g/dL (33-37); MEAN CORPUSCULAR VOLUME 92 fL (80-94); PLATELET COUNT (AUTO) 248 K/uL (140-450); RED BLOOD CELL COUNT(AUTO) 3.17 MIL/uL (4.20-5.40); RED CELL DISTRIBUTION WIDTH 14.8 % (11.6-13.7)
[2017-02-09 07:46] LABS: BASOPHILS # (AUTO) 0.1 K/uL (0.00-0.22); BASOPHILS % (AUTO) 0.4 % (0.0-2.0); EOSINOPHILS # (AUTO) 0.1 K/uL (0-0.4); LYMPHOCYTES # (AUTO) 3.7 K/uL (2.5-16.5); MONOCYTES % (AUTO) 7.3 % (1.7-9.3); NEUTROPHILS # (AUTO) 8.7 K/uL (1.8-7.7)
[2017-02-09 08:00] VITALS: BP 110/68
--- NOTE | 2017-02-09 08:00 | NUR ---
RECEIVED REPORT FROM BREEZY PITTMAN FOR CONTINUITY OF CARE PATIENT AWAKE A/OX4 NO S/S OF RESP DISTRESS NOTED. NO COMPLAIN OF PAIN .ABLE TO MAKE NEEDS KNOWN. SURGICAL WOUND ON LEFT SHOULDER COVERED WITH DRESSING . IV SITE RT AC GAUGE 20 INTACT AND PATENT. PATIENT IS AWARE OF GOING FOR I&D ON LEFT SHOULDER ABSCESS , NPO FOR NOW. PLAN OF CARE DISCUSSED WITH THE PATIENT VITALS STABLE WILL CONTINUE TO MONITOR.
[2017-02-09] MEDS: ENOXAPARIN 40 MG/0.4 ML SYR SUBQ SCH (09:00)
[2017-02-09] MEDS: NACL 0.9% 1,000 ML IV SCH ×2 (09:41→12:09)
--- NOTE | 2017-02-09 09:46 | NUR ---
FAXED INITIAL REVIEW TO [facility] [phone] PHONE ANA [phone]
[2017-02-09] MEDS: INSULIN DETEMIR 100 UNITS/ML 10 ML VIAL SUBQ SCH (09:55)
--- NOTE | 2017-02-09 10:00 | NUR ---
COMPLAIN OF PAIN ON RT SHOULDER MEDICATED WITH MORPHINE 2 MG IVP
--- NOTE | 2017-02-09 10:05 | NUR ---
SPOKE TO PRIMARY RN, PT. IS WAITING FOR DR. ULRICH I&D FOR LEFT SHOULDER ABSCESS. AND WILL DISCHARGE WITH HOME HEALTH. WOUND CONSULT PENDING AT THIS TIME.
--- NOTE | 2017-02-09 10:30 | NUR ---
PAIN RELIVED RELAXED AT THIS TIME. PAGED DR ULRICH WAITING FOR CALL BACK
--- NOTE | 2017-02-09 11:58 | NUR ---
CHECKED BLOOD SUGAR 186 NO COVERAGE GIVEN BECAUSE PATIENT IS NPO WILL OBSERVE PT.
--- NOTE | 2017-02-09 13:35 | NUR ---
02/09/17 RD INITIAL ASSESSMENT COMPLETED PLEASE REFER TO NUTRITION ASSESSMENT UNDER CARE ACTIVITY FOR ESTIMATED NUTRITIONAL NEEDS. 1. CONTINUE NPO MEDICALLY NECESSARY PER MD 2. WHEN MEDICALLY APPROPRIATE [facility] [address] PROVIDED PT WITH DM DIET EDUCATION 4. RD TO FOLLOW-UP 3-5 DAYS, MODERATE RISK JOSE M FALCON RD
[2017-02-09] MEDS ORDERED: POTASSIUM CHLORIDE 10 MEQ TABER PO SCH (14:00)
[2017-02-09] MEDS: DEXT 5% /NACL 0.9% 1,000 ML IV SCH ×3 (14:03→23:56)
--- NOTE | 2017-02-09 14:10 | NUR ---
ENDORSE THE CARE TO ARVIN PITTMAN
--- NOTE | 2017-02-09 14:10 | NUR ---
RECEIVED REPORT FROM TOYA SHARMA, PT IN STABLE CONDITION, PT DENIES PAIN, NO S/S OF ACUTE DISTRESS, WILL CONT TO MONITOR.
[2017-02-09 16:02] VITALS: BP 99/58
--- NOTE | 2017-02-09 16:33 | NUR ---
SPOKE WITH KALYAN AT [facility] REGARDING PT MOST LIKELY WILL REQUIRE HOME HEALTH SERVICES ON DISCHARGE FOR WOUND CARE. PER KALYAN SHE WILL ENTER AN AUTH IN THE SYSTEM BUT WILL NOT ENTER NAME OF AGENCY UNTIL ESTABLISHED. CAN USE [facility]. JAVIER IS THE CM THAT WILL BE RECEIVABLE CLERK ON TUESDAY. [phone]
--- NOTE | 2017-02-09 17:57 | NUR ---
DRESSING CHANGED, ABSCESS WITH MINIMUM DRAINAGE, PT DENIES PAIN, NO S/S OF ACUTE DISTRESS, WILL CONTINUE TO MONITOR.
--- NOTE | 2017-02-09 18:48 | NUR ---
PT OFF UNIT FOR SURGERY.
[2017-02-09] MEDS ORDERED: PROPOFOL 200 MG/20 ML VIAL IV ONE (18:50)
[2017-02-09] MEDS ORDERED: BUPIVACAINE-MPF 0.25% 30 ML VIAL INJ ONE (19:03)
[2017-02-09] MEDS ORDERED: fentaNYL 0.05 MG/ML VIAL ONE (19:11)
[2017-02-09] MEDS ORDERED: MIDAZOLAM 2 MG/2 ML VIAL ONE (19:11)
--- NOTE | 2017-02-09 19:16 | NUR ---
ENDORSED CARE TO NIGHT RN, PT IN STABLE CONDITION.
--- NOTE | 2017-02-09 19:18 | NUR ---
RECEIVED HANDOFF REPORT FROM TRU RN. PATIENT OFF UNIT IN OR.
[2017-02-09] MEDS ORDERED: HYDROmorphone 1 MG/ML AMP IVP PRN (19:20)
[2017-02-09] MEDS ORDERED: ONDANSETRON 4 MG/2 ML VIAL IVP PRN (19:20)
[2017-02-09] MEDS ORDERED: BLOOD GLUCOSE MONITORING 1 DEV DEV FS ONE (19:20)
--- NOTE | 2017-02-09 20:15 | NUR ---
PATIENT BACK FROM OR. PATIENT A&OX4. PATIENT STATES PAIN 9/10. WILL MEDICATE ORDERED. DRESSING DRY AND INTACT. NO SIGNS OR SYMPTOMS OF ACUTE DISTRESS NOTED. CALL LIGHT WITHIN REACH. WILL CONTINUE TO MONITOR.
[2017-02-09] MEDS: MORPHINE SULFATE 4 MG/ML SYR IVP PRN (20:21)
[2017-02-10] VITALS: BP 136/88
[2017-02-10] MEDS: MORPHINE SULFATE 4 MG/ML SYR IVP PRN ×2 (00:27→06:48)
--- NOTE | 2017-02-10 00:30 | NUR ---
PATIENT RESTING IN BED. PATIENT STATES PAIN. WILL MEDICATE ORDERED. NO SIGNS OR SYMPTOMS OF ACUTE DISTRESS NOTED. DRESSING DRY AND INTACT. CALL LIGHT WITHIN REACH. WILL CONTINUE TO MONITOR.
--- NOTE | 2017-02-10 03:23 | NUR ---
PATIENT RESTING IN BED. NO SIGNS OR SYMPTOMS OF ACUTE DISTRESS NOTED. CALL LIGHT WITHIN REACH. WILL CONTINUE TO MONITOR.
[2017-02-10] MEDS: CLINDAMYCIN 600 MG in DEXTROSE 5% 50 ML IV SCH ×3 (04:56→22:20)
[2017-02-10] MEDS: PIPER/TAZO 3.375GM/D5W PREMIX 50 ML IV SCH ×3 (05:31→22:20)
[2017-02-10] MEDS: INSULIN LISPRO SLIDING SCALE 100 UNITS/ML VIAL SUBQ PRN ×4 (06:52→22:31)
[2017-02-10] MEDS: BLOOD GLUCOSE MONITORING 1 DEV DEV FS SCH ×4 (06:52→21:00)
[2017-02-10 07:08] LABS: BASOPHILS # (AUTO) 0.2 K/uL (0.00-0.22); BASOPHILS % (AUTO) 1.8 % (0.0-2.0); EOSINOPHILS # (AUTO) 0.2 K/uL (0-0.4); EOSINOPHILS % (AUTO) 1.9 % (0.0-4.0); HEMOGLOBIN 9.5 g/dL (12.0-16.0); LYMPHOCYTES # (AUTO) 3.1 K/uL (2.5-16.5); LYMPHOCYTES % (AUTO) 29.8 % (20.5-51.1); MEAN CORPUSCULAR HEMOGLOBIN 30 pg (27-31); MEAN CORPUSCULAR HGB CONC 33 g/dL (33-37); MEAN CORPUSCULAR VOLUME 91 fL (80-94); MONOCYTES # (AUTO) 0.6 K/uL (0.8-1.0); NEUTROPHILS # (AUTO) 6.3 K/uL (1.8-7.7); NEUTROPHILS % (AUTO) 60.5 % (42.2-75.2); PLATELET COUNT (AUTO) 275 K/uL (140-450); RED BLOOD CELL COUNT(AUTO) 3.19 MIL/uL (4.20-5.40); RED CELL DISTRIBUTION WIDTH 14.5 % (11.6-13.7); WHITE BLOOD COUNT (AUTO) 10.4 K/uL (4.8-10.8)
--- NOTE | 2017-02-10 07:26 | NUR ---
ENDORSED PLAN OF CARE TO AM RN. PATIENT IN STABLE CONDITION. NO SIGNS OR SYMPTOMS OF ACUTE DISTRESS NOTED. CALL LIGHT WITHIN REACH.
--- NOTE | 2017-02-10 07:27 | NUR ---
RECEIVED REPORT FROM THE SHOE LASTER NURSE AT BEDSIDE FOR CONTINUITY OF CARE. PT IS AWAKE AND ORIENTED. INTRODUCED MYSELF AND UPDATE THE BOARD. PT IS S/P I & D ON R SHOULDER, DRESSING IN PLACE. V/S WITHIN NORMAL RANGE. DENIES PAIN. IV ON R AC 20G D5NS AT 100ML INFUSING. NO COMPLAINTS AT THIS TIME. NO DIET AT THIS TIME. WILL ADVISE. WILL CONTINUE TO MONITOR PT.
[2017-02-10 07:41] LABS: ALBUMIN 2.2 g/dL (3.4-5.0); ANION GAP 16.5 (8-16); CARBON DIOXIDE 18.9 mmol/L (21-32); CREATININE 0.6 mg/dL (0.6-1.3); POTASSIUM 3.4 mmol/L (3.5-5.1); TOTAL BILIRUBIN 0.2 mg/dL (0.0-1.0)
[2017-02-10 08:00] VITALS: BP 106/68
[2017-02-10] MEDS: INSULIN DETEMIR 100 UNITS/ML 10 ML VIAL SUBQ SCH (08:42)
[2017-02-10] MEDS: ENOXAPARIN 40 MG/0.4 ML SYR SUBQ SCH (08:42)
--- NOTE | 2017-02-10 08:45 | NUR ---
ADMINISTERED MORNING MEDS. PT TOLERATED WELL. PT IS RECEIVED A [facility] [place] DIET TRAY. PT TOLERATING WELL. WILL CONTINUE TO MONITOR PT.
--- NOTE | 2017-02-10 10:20 | NUR ---
PT SLEEPING SOUNDLY. NO SIGNS OF DISTRESS. WILL CONTINUE TO MONITOR PT.
[2017-02-10] MEDS: MORPHINE SULFATE 2 MG/ML SYR IVP PRN ×2 (11:49→15:58)
--- NOTE | 2017-02-10 12:37 | NUR ---
DAUGHTER VISITING AT BEDSIDE. EATING LUNCH. NO COMPLAINTS AT THIS TIME. WILL CONTINUE TO MONITOR PT.
--- NOTE | 2017-02-10 14:12 | NUR ---
DR STEEN HERE TO SEE PT. PER , PT CAN GO HOME TOMORROW. WAITING ON THE SENSITIVITY OF WOUND CULTURE. PT AWARE.
[2017-02-10 16:00] VITALS: BP 115/71
--- NOTE | 2017-02-10 16:30 | NUR ---
DR ULRICH HERE TO SEE PT. REQUESTED DRESSING CHANGE.
--- NOTE | 2017-02-10 17:00 | NUR ---
DRESSING CHANGE DONE. UNPACKED, CLEANED, TOOK PICTURE, REPACKED AND ISLAND DRESSING ADMINISTERED. PT TOLERATED WELL.
[2017-02-10] MEDS: DEXT 5% /NACL 0.9% 1,000 ML IV SCH (19:15)
--- NOTE | 2017-02-10 19:15 | NUR ---
ENDORSED PT TO THE SEED LABORATORY TECHNICIAN NURSE AT BEDSIDE FOR CONTINUITY OF CARE. PT IS STABLE.
[2017-02-10] MEDS ORDERED: CLINDAMYCIN 600 MG/4 ML VIAL ONE (22:23)
[2017-02-11] VITALS: BP 127/81
[2017-02-11] MEDS: MORPHINE SULFATE 2 MG/ML SYR IVP PRN (00:10)
[2017-02-11] MEDS: DEXT 5% /NACL 0.9% 1,000 ML IV SCH (05:15)
[2017-02-11] MEDS: CLINDAMYCIN 600 MG in DEXTROSE 5% 50 ML IV SCH ×2 (05:36→12:32)
[2017-02-11] MEDS: PIPER/TAZO 3.375GM/D5W PREMIX 50 ML IV SCH ×2 (05:36→12:34)
[2017-02-11] MEDS: INSULIN LISPRO SLIDING SCALE 100 UNITS/ML VIAL SUBQ PRN ×2 (06:22→14:39)
[2017-02-11 06:45] LABS: BASOPHILS # (AUTO) 0.5 K/uL (0.00-0.22); BASOPHILS % (AUTO) 4.5 % (0.0-2.0); EOSINOPHILS # (AUTO) 0.2 K/uL (0-0.4); EOSINOPHILS % (AUTO) 2.2 % (0.0-4.0); HEMATOCRIT 30.8 % (36-48); LYMPHOCYTES # (AUTO) 2.8 K/uL (2.5-16.5); LYMPHOCYTES % (AUTO) 27.4 % (20.5-51.1); MEAN CORPUSCULAR HEMOGLOBIN 29 pg (27-31); MEAN CORPUSCULAR HGB CONC 33 g/dL (33-37); MEAN CORPUSCULAR VOLUME 90 fL (80-94); MONOCYTES # (AUTO) 0.7 K/uL (0.8-1.0); MONOCYTES % (AUTO) 7.3 % (1.7-9.3); NEUTROPHILS # (AUTO) 6.1 K/uL (1.8-7.7); NEUTROPHILS % (AUTO) 58.6 % (42.2-75.2); PLATELET COUNT (AUTO) 320 K/uL (140-450); RED BLOOD CELL COUNT(AUTO) 3.41 MIL/uL (4.20-5.40); RED CELL DISTRIBUTION WIDTH 14.4 % (11.6-13.7); WHITE BLOOD COUNT (AUTO) 10.3 K/uL (4.8-10.8)
[2017-02-11 07:14] LABS: ALBUMIN 2.3 g/dL (3.4-5.0); ANION GAP 12.5 (8-16); CARBON DIOXIDE 21.7 mmol/L (21-32); CREATININE 0.6 mg/dL (0.6-1.3); POTASSIUM 3.2 mmol/L (3.5-5.1); TOTAL BILIRUBIN 0.1 mg/dL (0.0-1.0)
--- NOTE | 2017-02-11 07:25 | NUR ---
RECEIVED REPORT FROM THE SECURITY SHIFT SUPERVISOR NURSE AT BEDSIDE FOR CONTINUITY OF CARE. PT IS AWAKE AND ORIENTED. INTRODUCED MYSELF AND UPDATED THE BOARD. PT IS S/P I&D ON L SHOULDER ON 02/09, DRESSING IN PLACE. PT HAS IV R AC 2OG D5 NS AT 100ML. V/S WITHIN NORMAL RANGE. C/O PAIN. WILL MEDICATE REQUESTED. WILL CONTINUE TO MONITOR PT.
[2017-02-11 08:00] VITALS: BP 112/68
[2017-02-11] MEDS: MORPHINE SULFATE 4 MG/ML SYR IVP PRN (08:17)
[2017-02-11] MEDS: ENOXAPARIN 40 MG/0.4 ML SYR SUBQ SCH (08:18)
[2017-02-11] MEDS: INSULIN DETEMIR 100 UNITS/ML 10 ML VIAL SUBQ SCH (08:19)
--- NOTE | 2017-02-11 08:20 | NUR ---
ADMINISTERED MORNING MEDS AND PAIN MED. PT TOLERATED WELL. WAITING ON THE SENSITIVITY OF CULTURE SO SHE CAN BE D/C'D. WILL CONTINUE TO MONITOR PT.
[2017-02-11] MEDS: BLOOD GLUCOSE MONITORING 1 DEV DEV FS SCH ×2 (08:25→12:13)
--- NOTE | 2017-02-11 12:40 | NUR ---
DR. STEEN HERE TO ASSESS PT.
[2017-02-11] MEDS ORDERED: POTASSIUM CHLORIDE 10 MEQ TABER PO SCH (13:38)
--- NOTE | 2017-02-11 14:00 | NUR ---
PERFORMED WOUND CARE. REMOVED THE PACKING. CLEANSED WITH NS AND PATTED DRY. PACKED AND ISLAND DRESSING IN PLACE. NOTIFIED [facility], REGARDING DAILY WOUND CARE. WILL LET ME KNOW WHICH HH AGENCY WILL BE VISITING PT. WILL CONTINUE WITH D/C PROCESS.
--- NOTE | 2017-02-11 15:00 | NUR ---
D/C INSTRUCTIONS GIVEN TO PT. PT VERBALIZED UNDERSTANDING. IV REMOVED, CANNULA INTACT. NO BLEEDING NOTED. ID BAND REMOVED. PT WILL GET DRESSED AND GATHER HER BELONGINGS. WILL LET ME KNOW WHEN SHE IS READY TO LEAVE. STILL WAITING ON TAMI RED WITH INFO ABOUT HOME HEALTH.
--- NOTE | 2017-02-11 15:20 | NUR ---
PT WANTS TO LEAVE. WILL HAVE HH CALL PT. ENOUGH SUPPLIES GIVEN FOR 3 DAYS. VERIFIED ADDRESS AND PHONE NUMBER ON DEMOGRAPHICS/FACE SHEET.
--- NOTE | 2017-02-11 15:30 | NUR ---
PT ESCORTED OUT BY CONCRETE BOOM OPERATOR, ACCOMPANIED BY DAUGHTER. ALL PERSONAL BELONGINGS WITH PT. PT IN STABLE CONDITION.
--- NOTE | 2017-02-11 16:02 | NUR ---
CALLED [facility] . THEY HAVE NO ONE TO OPEN THE CASE UNTIL TUESDAY. I CALLED [facility] AND FAXED INQUIRY.
--- NOTE | 2017-02-11 16:34 | NUR ---
[facility] CALLED BACK. UNABLE TO TAKE THIS PATIENT UINTIL NEW WEEK. I CALLED [facility] AND SPOKE WITH JENNIFER, [phone]. HE SAID THEY COULD TAKE THE PATIENT AND START TOMORROW. HE JUST NEEDED THE AUTH NUMBER.. I FAXED INQUIRY TO HIM AT [phone]. I CALLED [facility] AND SPOKE WITH JAVIER, [phone]. SHE SAID THE AUTH FOR [facility] IS [id number].
== END 2017-02-11 15:30 | disposition home health service (06) | DRG 720 ==
LOC: MED 00:30 → MTU 03:48
PROVIDERS: ADMIT Hospitalist; ATTEND Hospitalist
PROC: 0X930ZZ Drainage of Left Shoulder Region, Open Approach (ICD-10-PCS; 2017-02-08)
PROC: 0X930ZZ Drainage of Left Shoulder Region, Open Approach (ICD-10-PCS; 2017-02-09)
PROC: 0JBF0ZZ Excision of Left Upper Arm Subcutaneous Tissue and Fascia, Open Approach (ICD-10-PCS; principal; 2017-02-09 18:30)
DX: A41.9 Sepsis, unspecified organism (principal); E87.2 Acidosis; L03.114 Cellulitis of left upper limb; E11.65 Type 2 diabetes mellitus with hyperglycemia; L02.212 Cutaneous abscess of back [any part, except buttock and flank]; F17.200 Nicotine dependence, unspecified, uncomplicated; E87.6 Hypokalemia; D64.9 Anemia, unspecified; Z90.49 Acquired absence of other specified parts of digestive tract; Z98.891 History of uterine scar from previous surgery; Z79.4 Long term (current) use of insulin; Z79.899 Other long term (current) drug therapy; E83.51 Hypocalcemia
CPT/HCPCS: 36415; 73010; 80048; 80053; 82948; 83605; 85025; 85610; 87040; 87070; 87075; 87081; 87186; 87205; 88304; 96361; 96365; 96375; 99291; J1170; J1650; J1815; J1885; J2001; J2250; J2270; J2405; J2543; J2704; J3010; J3480; J3490; J7030; J7042; J7060; Q0092

== ENCOUNTER 2017-02-27 18:10 | Emergency (ER) | payer OTHER ==
[~2017-02-27] VITALS: Ht 160 cm; Wt 65.9 kg
[~2017-02-27 18:10] MED LIST changes: -TRAM50TA1 PO
[2017-02-27 18:54] VITALS: BP 148/91
--- NOTE | 2017-02-27 19:20 | NUR ---
PATIENT PRESENTS TO ED WITH C/O DIZZINESS SINCE LAST NIGHT WITH NAUSEA AND DOUBLE VISSION; DENIES V/D; BLOOD SUGAR 560 TAKEN 2 HOURS AGO PER DAUGHTER; TOOK REGULAR INSULIN 25 UNITS ABOUT 1/2 HOUR AGO, HX; DM, CHRONIC BACK PAIN. RX; INSULIN, POTASSIUM, SPIRONOLACTONE, MAG OXIDE . SKIN IS PINK/WARM/DRY, OPEN WOUND NOTED TO LEFT SHOULDER, TREATED WITH HOME HEALTH NURSE; AAOX4 WITH UNSTEADY GAIT DUE TO DIZZINESS; LUNGS CLEAR BL; HR EVEN AND REGULAR; PT DENIES ANY FEVER, CP, SOB, OR COUGH AT THIS TIME; PATIENT STATES PAIN OF 7/10 AT THIS TIME TO RIGHT FLANK; VSS; PATIENT POSITIONED FOR COMFORT; HOB ELEVATED; BEDRAILS UP X2; BED DOWN. ER MD MADE AWARE OF PT STATUS.
[2017-02-27] MEDS ORDERED: NACL 0.9% 500 ML IV ONE ×2 (19:26)
[2017-02-27 20:06] LABS: BASOPHILS # (AUTO) 0.9 K/uL (0.00-0.22); EOSINOPHILS # (AUTO) 0.2 K/uL (0-0.4); EOSINOPHILS % (AUTO) 1.7 % (0.0-4.0); HEMATOCRIT 38.5 % (36-48); HEMOGLOBIN 12.8 g/dL (12.0-16.0); LYMPHOCYTES # (AUTO) 3.7 K/uL (2.5-16.5); MEAN CORPUSCULAR HEMOGLOBIN 30 pg (27-31); MEAN CORPUSCULAR HGB CONC 33 g/dL (33-37); MEAN CORPUSCULAR VOLUME 89 fL (80-94); MONOCYTES # (AUTO) 0.6 K/uL (0.8-1.0); MONOCYTES % (AUTO) 6.4 % (1.7-9.3); NEUTROPHILS # (AUTO) 4.5 K/uL (1.8-7.7); PLATELET COUNT (AUTO) 321 K/uL (140-450); RED BLOOD CELL COUNT(AUTO) 4.31 MIL/uL (4.20-5.40); RED CELL DISTRIBUTION WIDTH 15.2 % (11.6-13.7); WHITE BLOOD COUNT (AUTO) 9.9 K/uL (4.8-10.8)
[2017-02-27 20:11] LABS: BASOPHILS % (AUTO) 8.9 % (0.0-2.0)
[2017-02-27 20:20] LABS: ANION GAP 15.2 (8-16); CARBON DIOXIDE 23.9 mmol/L (21-32); CHLORIDE 104 mmol/L (98-107); CREATININE 0.8 mg/dL (0.6-1.3); GFR ARICAN-AMERICAN 98 mL/min (>90); GLUCOSE 287 mg/dL (74-106); POTASSIUM 3.1 mmol/L (3.5-5.1); SODIUM SERUM 140 mmol/L (136-145); UREA NITROGEN, BLOOD 10 mg/dL (7-18)
[2017-02-27 20:25] LABS: ACETONE, SERUM NEGATIVE (NEGATIVE)
[2017-02-27 20:26] LABS: ALBUMIN 3.3 g/dL (3.4-5.0); ASPARTATE AMINOTRANSFERASE 19 U/L (15-37); TOTAL BILIRUBIN 0.2 mg/dL (0.0-1.0)
[2017-02-27] MEDS ORDERED: ONDANSETRON 4 MG/2 ML VIAL IVP ONE (20:50)
[2017-02-27] MEDS ORDERED: KETOROLAC 30 MG/ML VIAL IVP ONE (21:20)
[2017-02-27] MEDS ORDERED: POTASSIUM CHLORIDE 10 MEQ TABER PO ONE (21:25)
--- NOTE | 2017-02-27 21:34 | NUR ---
IVP/PO/IVF MEDS GIVEN-NADR AT THIS TIME
[2017-02-27 22:03] LABS: APPEARANCE,URINE CLEAR (CLEAR); BILIRUBIN,URINE NEGATIVE (NEGATIVE); BLOOD, URINE NEGATIVE (NEGATIVE); COLOR,URINE YELLOW (YELLOW); LEUKOCYTE ESTERASE ,URINE NEGATIVE (NEGATIVE); NITRITE, URINE NEGATIVE (NEGATIVE); UGLUCOSE 3+ (NEGATIVE)
[2017-02-27 22:19] LABS: RBC,URINE NONE SEEN /HPF (0-5); WBC,URINE 0-5 (RARE) /HPF (0-5)
[2017-02-27 22:30] VITALS: BP 99/60
== END 2017-02-27 22:30 | disposition home or self-care (01) ==
LOC: MED 18:10
DX: E11.65 Type 2 diabetes mellitus with hyperglycemia (principal); E87.6 Hypokalemia; R03.0 Elevated blood-pressure reading, without diagnosis of hypertension; Z88.8 Allergy status to other drugs, medicaments and biological substances
CPT/HCPCS: 36415; 74022; 80053; 81001; 82009; 82948; 83690; 84484; 85025; 87086; 93005; 96361; 96374; 96375; 99285; J1885; J2405; J7030

== ENCOUNTER 2017-04-14 21:45 | Emergency (ER) | payer OTHER ==
[~2017-04-14] VITALS: Ht 157.5 cm; Wt 61.7 kg
[2017-04-14 21:53] VITALS: BP 158/94
--- NOTE | 2017-04-14 22:20 | NUR ---
PATIENT PRESENTS TO ED WITH C/O DIZZINESS WITH N/V X 2 DAYS. HX. DM PT SKIN IS PINK/WARM/DRY; AAOX4 WITH EVEN AND STEADY GAIT; LUNGS CLEAR BL; HR EVEN AND REGULAR; PT DENIES ANY FEVER, CP, SOB, OR COUGH AT THIS TIME; PATIENT STATES PAIN OF 6/10 AT THIS TIME; VSS; PATIENT POSITIONED FOR COMFORT; HOB ELEVATED; BEDRAILS UP X2; BED DOWN. ER MD MADE AWARE OF PT STATUS.
--- NOTE | 2017-04-14 22:27 | NUR ---
TO ER BED 3
[2017-04-14] MEDS ORDERED: NACL 0.9% 1,000 ML IV ONE (23:00)
--- NOTE | 2017-04-14 23:20 | NUR ---
X-Ray at bedside.
--- NOTE | 2017-04-14 23:23 | NUR ---
LAB DRAW AT BEDSIDE
[2017-04-14 23:33] LABS: HEMATOCRIT 40.9 % (36-48); HEMOGLOBIN 13.3 g/dL (12.0-16.0); MEAN CORPUSCULAR HEMOGLOBIN 29 pg (27-31); MEAN CORPUSCULAR HGB CONC 33 g/dL (33-37); MEAN CORPUSCULAR VOLUME 88 fL (80-94); PLATELET COUNT (AUTO) 241 K/uL (140-450); RED BLOOD CELL COUNT(AUTO) 4.63 MIL/uL (4.20-5.40); RED CELL DISTRIBUTION WIDTH 14.4 % (11.6-13.7); WHITE BLOOD COUNT (AUTO) 9.3 K/uL (4.8-10.8)
[2017-04-14 23:49] LABS: APPEARANCE,URINE CLEAR (CLEAR); BARBITURATE, URINE NEG. ng/ml (NEG <=200); BENZODIAZEPINE, URINE NEG. ng/mL (NEG <=200); BILIRUBIN,URINE NEGATIVE (NEGATIVE); BLOOD, URINE TRACE-L (NEGATIVE); CANNABINOID, URINE NEG. ng/mL (NEG <=50); COCAINE, URINE NEG. ng/mL (NEG <=300); COLOR,URINE YELLOW (YELLOW); LEUKOCYTE ESTERASE ,URINE NEGATIVE (NEGATIVE); NITRITE, URINE NEGATIVE (NEGATIVE); OPIATE, URINE NEG. ng/mL (NEG <=2000); PHENCYCLIDINE SCREEN,URINE NEG. ng/mL (NEG <=25); UGLUCOSE 3+ (NEGATIVE)
[2017-04-14 23:54] LABS: ANION GAP 11.5 (8-16); ASPARTATE AMINOTRANSFERASE 16 U/L (15-37); CARBON DIOXIDE 25.4 mmol/L (21-32); CHLORIDE 109 mmol/L (98-107); CREATININE 0.8 mg/dL (0.6-1.3); GFR ARICAN-AMERICAN 98 mL/min (>90); GLUCOSE 127 mg/dL (74-106); LIPASE 91 U/L (73-393); LYMPHOCYTES % (MANUAL) 50 % (20-46); MAGNESIUM 1.8 mg/dL (1.8-2.4); MONOCYTES % (MANUAL) 12 % (5-12); PHOSPHORUS 2.5 mg/dL (2.5-4.9); SODIUM SERUM 143 mmol/L (136-145); TOTAL BILIRUBIN 0.1 mg/dL (0.0-1.0); UREA NITROGEN, BLOOD 18 mg/dL (7-18)
[2017-04-14 23:59] LABS: POTASSIUM 2.9 mmol/L (3.5-5.1)
[2017-04-15 00:10] LABS: RBC,URINE 0-5 (RARE) /HPF (0-5); WBC,URINE 0-5 (RARE) /HPF (0-5)
--- NOTE | 2017-04-15 01:01 | NUR ---
Lou dent in ED - 04/15/17 at 0102 by [email or web address] PT exam performed by with [employer] at bedside for entire examination. Patient tolerated procedure . Patient assisted to position of comfort after examination.
--- NOTE | 2017-04-15 01:02 | NUR ---
PT exam performed by DR AVENDAÑO WITH TOYA MEANS at bedside for entire examination. Patient tolerated procedure WELL. Patient assisted to position of comfort after examination.
[2017-04-15] MEDS ORDERED: POTASSIUM CHLORIDE 10 MEQ TABER PO ONE (01:05)
--- NOTE | 2017-04-15 01:15 | NUR ---
PO MEDS GIVEN-NADR AT THIS TIME
--- NOTE | 2017-04-15 02:20 | NUR ---
Patient discharged with v/s stable. Written and verbal after care instructions given and explained. Patient verbalized understanding. Ambulatory with steady gait. All questions addressed prior to discharge. Advised to follow up with PMD.
[2017-04-15 02:21] VITALS: BP 90/63
== END 2017-04-15 02:20 | disposition home or self-care (01) ==
LOC: MED 21:45
DX: E26.81 Bartter's syndrome (principal); M54.31 Sciatica, right side; E11.9 Type 2 diabetes mellitus without complications; Z88.6 Allergy status to analgesic agent; F17.200 Nicotine dependence, unspecified, uncomplicated
CPT/HCPCS: 36415; 71045; 80053; 80305; 81001; 81025; 82948; 83690; 83735; 84100; 84484; 85025; 93005; 96360; 99285; G0482; J7030; Q0092

== ENCOUNTER 2017-04-26 12:09 | Inpatient (IN) | payer OTHER ==
[~2017-04-26] VITALS: Ht 162.6 cm; Wt 61.7 kg
[2017-04-26 12:11] VITALS: BP 154/98
[2017-04-26 12:47] LABS: BASOPHILS # (AUTO) 0.1 K/uL (0.00-0.22); EOSINOPHILS # (AUTO) 0.2 K/uL (0-0.4); EOSINOPHILS % (AUTO) 1.9 % (0.0-4.0); HEMOGLOBIN 14.5 g/dL (12.0-16.0); LYMPHOCYTES # (AUTO) 3.1 K/uL (2.5-16.5); LYMPHOCYTES % (AUTO) 34.2 % (20.5-51.1); MEAN CORPUSCULAR HEMOGLOBIN 29 pg (27-31); MEAN CORPUSCULAR HGB CONC 33 g/dL (33-37); MEAN CORPUSCULAR VOLUME 87 fL (80-94); MONOCYTES # (AUTO) 0.2 K/uL (0.8-1.0); MONOCYTES % (AUTO) 2.7 % (1.7-9.3); NEUTROPHILS # (AUTO) 5.6 K/uL (1.8-7.7); NEUTROPHILS % (AUTO) 60.2 % (42.2-75.2); PLATELET COUNT (AUTO) 319 K/uL (140-450); RED BLOOD CELL COUNT(AUTO) 5.05 MIL/uL (4.20-5.40); WHITE BLOOD COUNT (AUTO) 9.2 K/uL (4.8-10.8)
[2017-04-26 13:20] LABS: ALBUMIN 3.3 g/dL (3.4-5.0); ANION GAP 15.6 (8-16); CARBON DIOXIDE 22.8 mmol/L (21-32); POTASSIUM 3.4 mmol/L (3.5-5.1); TOTAL BILIRUBIN 0.3 mg/dL (0.0-1.0)
--- NOTE | 2017-04-26 13:21 | NUR ---
Note jailene in EDM - 04/26/17 at 1326 by [email or web address] F BIB DAUGHTER 51/C/O RUQ TO RIGHT FLANK SHARP PAIN 8/10 X 2 DAYS WITH N/V----DENIES DYSURIA NO DIARRHEA LAST BM YESTERDAY WNL PER PT HX---DM, KIDNEY L GROWTH (NEPHROLOGY CARE), BARTTER SYNDROME RX---POTASSIUM, MAGNESIUM OXIDE, INSULIN HUMALOG,
--- NOTE | 2017-04-26 13:21 | NUR ---
51/F BIB DAUGHTER C/O N/V & RUQ RADIATES TO RIGHT FLANK SHARP PAIN 8/10 X 2 DAYS. NO DIARRHEA LAST BM YESTERDAY WNL PER PT. HX OF DM, KIDNEY L GROWTH (NEPHROLOGY CARE), BARTTER SYNDROME. SKIN IS PINK/WARM/DRY; AAOX4 WITH EVEN AND STEADY GAIT; LUNGS CLEAR BL; PT DENIES ANY FEVER, CP, SOB, OR COUGH AT THIS TIME; PATIENT STATES PAIN OF 8/10 AT THIS TIME; PATIENT POSITIONED FOR COMFORT; HOB ELEVATED; BEDRAILS UP X2; BED DOWN. ER MD MADE AWARE OF PT STATUS.
[2017-04-26] MEDS ORDERED: NACL 0.9% 1,000 ML IV ONE ×3 (13:35→15:40)
--- NOTE | 2017-04-26 13:36 | NUR ---
GLUCOSE 460 MG/DL RECEIVED REPORT FROM [facility]; LAB
[2017-04-26 14:00] LABS: APPEARANCE,URINE CLEAR (CLEAR); BILIRUBIN,URINE NEGATIVE (NEGATIVE); BLOOD, URINE NEGATIVE (NEGATIVE); COLOR,URINE YELLOW (YELLOW); LEUKOCYTE ESTERASE ,URINE NEGATIVE (NEGATIVE); NITRITE, URINE NEGATIVE (NEGATIVE); UGLUCOSE 3+ (NEGATIVE)
--- NOTE | 2017-04-26 14:14 | NUR ---
Patient being evaluated by DR OLMEDO at bedside.
[2017-04-26] MEDS ORDERED: ONDANSETRON 4 MG/2 ML VIAL IVP ONE (14:20)
[2017-04-26] MEDS ORDERED: HYDROmorphone PFS 2 MG/ML SYR IVP ONE ×2 (14:20→16:45)
[2017-04-26 14:46] LABS: RBC,URINE NONE SEEN /HPF (0-5); WBC,URINE 0-5 (RARE) /HPF (0-5)
[2017-04-26 15:15] LABS: PROTHROMBIN TIME 10.6 secs (10.8-13.4)
--- NOTE | 2017-04-26 15:30 | NUR ---
PT TAKEN TO CT VIA W/C ACCOMPANIED BY [employer] AT THIS TIME.
--- NOTE | 2017-04-26 15:41 | NUR ---
BACK FROM CT.
[2017-04-26] MEDS ORDERED: MAG SULF 2000 MG/WATER PREMIX 50 ML IV ONE (17:00)
[2017-04-26] MEDS ORDERED: ONDANSETRON 4 MG/2 ML VIAL IVP PRN (17:05)
[2017-04-26] MEDS ORDERED: ACETAMINOPHEN 325 MG TAB PO PRN (17:05)
[2017-04-26] MEDS ORDERED: DEXTROSE 50% 50 ML SYR IVP PRN (17:05)
[2017-04-26] MEDS ORDERED: ZOLPIDEM 5 MG TAB PO PRN (17:10)
--- NOTE | 2017-04-26 17:36 | NUR ---
Patient will be admitted to care of MARTHA. Admited to TELE. Will go to room 105. Belongings list completed. Report to TOYA ALEXANDER.
--- NOTE | 2017-04-26 17:40 | NUR ---
RECEIVED PT FROM ED, AAOX4. NO SOB NOTED. NO C/O PAIN AT THIS TIME. IV TO RT HAND PATENT AND INTACT WITH MG RIDER INFUSING WELL AT 25 MLS/HR. WITH STABLE V/S : TEMP: 97.8 F, BP: 121/71 MMHG, HR: 79/MIN, RR: 18/MIN, WITH O2 SATS OF 96% ON ROOM AIR. INSTRUCTED PT ON NPO. CALL LIGHT WITHIN REACH, INSTRUCTED TO CALL FOR ASSISTANCE, PT VERBALIZED UNDERSTANDING.
[2017-04-26] MEDS ORDERED: BLOOD GLUCOSE MONITORING 1 DEV DEV FS SCH ×2 (18:00→21:00)
--- NOTE | 2017-04-26 18:13 | NUR ---
BILATERAL NARES SWABS TAKEN AND SENT TO LAB FOR MRSA SCREENING.
--- NOTE | 2017-04-26 18:48 | NUR ---
PT AWAKE, TALKING TO DAUGHTER AT THE BEDSIDE. NO SOB NOTED. NO COMPLAINTS MADE AT THIS TIME. WILL ENDORSE TO NEXT SHIFT NURSE TO CONTINUE THE ADMISSIO PROCESS.
[2017-04-26 19:00] VITALS: BP 107/63
--- NOTE | 2017-04-26 19:00 | NUR ---
RECEIVED REPORT FROM AM NURSE. WILL CONTINUE WITH ADMISSION PROCESS. PT'S DAUGHTER AT BEDSIDE. PT RESTING IN BED, AOX4, AMBULATORY, ABLE TO VERBALIZE NEEDS. PT C/O TOLERABLE EPIGASTRIC/ABD PAIN AT THIS TIME, WILL MEDICATE WHEN NEEDED. PT DENIES NAUSEA AT THIS TIME. BOWEL SOUNDS ACTIVE, LBM TODAY. IV ACCESS ASYMPTOMATIC, PATENT AND INTACT. IVF INFUSING WELL. DISCUSSED AND REVIEWED PLAN OF CARE WITH PT, PT INSTRUCTED TO REMAIN NPO, PT VERBALIZED UNDERSTANDING. ALL NEEDS MET. SAFETY MEASURES ENSURED. CALL LIGHT WITHIN REACH.
[2017-04-26] MEDS: NACL 0.9% 1,000 ML IV SCH (19:01)
[2017-04-26] MEDS: FAMOTIDINE 20 MG/2 ML VIAL IVP SCH (21:22)
[2017-04-26] MEDS: BLOOD GLUCOSE MONITORING 1 DEV DEV FS SCH (21:22)
[2017-04-26] MEDS: INSULIN NPH HUM/REG INSULIN HM 100 UNIT/ML 10 ML VIAL SUBQ SCH (21:24)
[2017-04-26] MEDS: INSULIN LISPRO SLIDING SCALE 100 UNITS/ML VIAL SUBQ PRN (21:27)
[2017-04-26] MEDS: HYDROmorphone PFS 2 MG/ML SYR IVP PRN (21:33)
--- NOTE | 2017-04-26 21:33 | NUR ---
BLOOD GLUCOSE 340, ADMINISTERED INSULIN COVERAGE WITH EDUCATION. PT C/O ABD PAIN, SEE PAIN ASSESSMENT, ADMINISTERED DILAUDID 1MG IVP PRN WITH EDUCATION. ADMINISTERED REMAINING DUE MEDS WITH EDUCATION. PT VERBALIZED UNDERSTANDING, TOLERATED MEDS WELL. ALL NEEDS MET. IVF INFUSING WELL. SAFETY MEASURES ENSURED. CALL LIGHT WITHIN REACH.
--- NOTE | 2017-04-26 22:32 | NUR ---
PT REPORTS RELIEF OF ABD PAIN, TOLERABLE AT THIS TIME. PT C/O INSOMNIA, ADMINISTERED AMBIEN PO PRN WITH EDUCATION. PT VERBALIZED UNDERSTANDING. ALL NEEDS MET. SAFETY MEASURES ENSURED. CALL LIGHT WITHIN REACH.
[2017-04-27] VITALS: BP 99/67
--- NOTE | 2017-04-27 00:30 | NUR ---
PT SLEEPING COMFORTABLY, AROUSABLE TO NAME, SPO2 96% ON ROOM AIR, RR 16 EVEN AND UNLABORED. ALL NEEDS MET. IVF INFUSING WELL. SAFETY MEASURES ENSURED.
[2017-04-27] MEDS: NACL 0.9% 1,000 ML IV SCH ×3 (04:00→23:47)
[2017-04-27] MEDS: HYDROmorphone PFS 2 MG/ML SYR IVP PRN ×5 (04:48→23:13)
--- NOTE | 2017-04-27 04:48 | NUR ---
PT RESTING IN BED, PT C/O ABD PAIN, SEE PAIN ASSESSMENT, ADMINISTERED 1MG DILAUDID IVP PRN WITH EDUCATION. PT VERBALIZED UNDERSTANDING, TOLERATED MED WELL. ALL NEEDS MET. SAFETY MEASURES ENSURED. CALL LIGHT WITHIN REACH.
[2017-04-27] MEDS: BLOOD GLUCOSE MONITORING 1 DEV DEV FS SCH ×5 (06:17→20:17)
--- NOTE | 2017-04-27 06:17 | NUR ---
BLOOD GLUCOSE 122, NO INSULIN COVERAGE NEEDED. PT RESTING COMFORTABLY, ALL NEEDS MET. IVF INFUSING WELL. SAFETY MEASURES ENSURED. CALL LIGHT WITHIN REACH.
[2017-04-27 06:57] LABS: BASOPHILS # (AUTO) 0.4 K/uL (0.00-0.22); BASOPHILS % (AUTO) 3.6 % (0.0-2.0); EOSINOPHILS # (AUTO) 0.2 K/uL (0-0.4); EOSINOPHILS % (AUTO) 2.4 % (0.0-4.0); HEMATOCRIT 37.3 % (36-48); HEMOGLOBIN 12.6 g/dL (12.0-16.0); LYMPHOCYTES # (AUTO) 3.9 K/uL (2.5-16.5); LYMPHOCYTES % (AUTO) 37.4 % (20.5-51.1); MEAN CORPUSCULAR HEMOGLOBIN 29 pg (27-31); MEAN CORPUSCULAR HGB CONC 34 g/dL (33-37); MEAN CORPUSCULAR VOLUME 87 fL (80-94); MONOCYTES # (AUTO) 0.9 K/uL (0.8-1.0); MONOCYTES % (AUTO) 8.2 % (1.7-9.3); NEUTROPHILS % (AUTO) 48.4 % (42.2-75.2); PLATELET COUNT (AUTO) 281 K/uL (140-450); RED BLOOD CELL COUNT(AUTO) 4.28 MIL/uL (4.20-5.40); RED CELL DISTRIBUTION WIDTH 14.6 % (11.6-13.7); WHITE BLOOD COUNT (AUTO) 10.4 K/uL (4.8-10.8)
--- NOTE | 2017-04-27 07:10 | NUR ---
ENDORSED PLAN OF CARE TO AM NURSE. CONDITION STABLE.
--- NOTE | 2017-04-27 07:12 | NUR ---
RECEIVED PATIENT REPORT AT BEDSIDE FROM NIGHT NURSE. PATIENT IS SLEEPING AND EASILY AROUSABLE TO VOICE AND SHOWS NO S/S OF ACUTE DISTRESS ON ROOM AIR. NOTED IV ON THE RT FA WITH IVF'S INFUSING WELL, IV IS PATENT AND INTACT. SKIN INTACT. STATES TOLERABLE ABD PAIN OF 4/10. PATIENT WAS DISCUSSED POC FOR TODAY, HOSPITAL ENVIRONMENT, CALL LIGHT USE FOR ASSISTANCE. BED IN LOW POSITION WITH CALL LIGHT WITHIN REACH, PATIENT VERBALIZED UNDERSTANDING.
[2017-04-27 07:13] LABS: CHOL/HDL RATIO 5.4 (1-4.5)
[2017-04-27 07:19] LABS: ALBUMIN 2.7 g/dL (3.4-5.0); ANION GAP 15.7 (8-16); CARBON DIOXIDE 17.8 mmol/L (21-32); CREATININE 0.6 mg/dL (0.6-1.3); PHOSPHORUS 3.2 mg/dL (2.5-4.9); POTASSIUM 3.5 mmol/L (3.5-5.1); TOTAL BILIRUBIN 0.2 mg/dL (0.0-1.0)
[2017-04-27 07:51] VITALS: BP 113/74
--- NOTE | 2017-04-27 08:50 | NUR ---
PAGED DR OSORIO REGARDING ORDER FOR HUMULIN 70/30 50 UNITS SQ Q12H, IF OKAY TO GIVE IF PATIENT IS NPO, WILL CHECK BS.
[2017-04-27] MEDS: FAMOTIDINE 20 MG/2 ML VIAL IVP SCH ×2 (08:56→20:08)
[2017-04-27] MEDS: ENOXAPARIN 40 MG/0.4 ML SYR SUBQ SCH (08:57)
[2017-04-27] MEDS: INSULIN NPH HUM/REG INSULIN HM 100 UNIT/ML 10 ML VIAL SUBQ SCH ×2 (09:00→20:09)
--- NOTE | 2017-04-27 09:07 | NUR ---
PATIENT HAS BEEN SCREENED AND CATEGORIZED MODERATE NUTRITION RISK. PATIENT WILL BE SEEN WITHIN 3-5 DAYS OF ADMISSION. 04/28/17-04/30/[address]
--- NOTE | 2017-04-27 09:10 | NUR ---
SPOKE WITH DR OSORIO AND STATED OKAY NOT TO GIVE HUMULIN 70/30. WILL NOT GIVE.
--- NOTE | 2017-04-27 09:12 | NUR ---
ADMINISTERED SCHEDULED MEDICATIONS, PATIENT IV PATENT AND INTACT. PATIENT C/O OF 09/27 ABD PAIN AND WAS GIVEN DILAUDID 1 MG IVP, WILL REASSESS PAIN IN ONE HR.
--- NOTE | 2017-04-27 10:12 | NUR ---
PATIENT STATES TOLERABLE ABD PAIN OF 4/10, ALL NEEDS MET AT THIS TIME.
--- NOTE | 2017-04-27 11:05 | NUR ---
CM NOTE INITIAL REVIEW FAXED TO [facility] [phone] ANA PH# [phone]
--- NOTE | 2017-04-27 12:45 | NUR ---
PATIENT IS SITTING UP, SHOWS NO S/S OF ACUTE DISTRESS, PATIENT STATED SHE HAD NO N/V WHILE EATING LUNCH HOWEVER DOES HAVE SOME DISCOMFORT.
--- NOTE | 2017-04-27 13:35 | NUR ---
PATIENT AMB TO RESTROOM AND SHOWS NO S/S OF ACUTE DISTRESS. ALL NEEDS MET AT THIS TIME.
--- NOTE | 2017-04-27 13:52 | NUR ---
PATIENT C/O ABD PAIN 09/27, ADMINISTERED DILAUDID 1 MG IVP, WILL REASSESS PAIN IN ONE HR.
--- NOTE | 2017-04-27 14:32 | NUR ---
PATIENT IS AMB IN ROOM, STATES TOLERABLE ABD PAIN 4/10. ALL NEEDS MET AT THIS TIME.
[2017-04-27 16:00] VITALS: BP 134/84
[2017-04-27] MEDS: INSULIN LISPRO SLIDING SCALE 100 UNITS/ML VIAL SUBQ PRN ×2 (16:39→20:17)
--- NOTE | 2017-04-27 16:42 | NUR ---
PATIENT HAS FAMILY AT BEDSIDE. PATIENT WAS GIVEN SLIDING SCALE HUMALOG 4 UNITS SQ FOR BS OF 217 ON THE RT UPPER ARM. PATIENT TOLERATED WELL ALL NEEDS MET AT THIS TIME.
--- NOTE | 2017-04-27 18:21 | NUR ---
PATIENT C/O ABD PAIN 09/27 ADMINISTERED DILAUDID 1 MG IVP WILL REASSESS IN ONE HR.
--- NOTE | 2017-04-27 19:00 | NUR ---
GAVE PATIENT REPORT AT BEDSIDE, PATIENT ENDORSED IN STABLE CONDITION.
--- NOTE | 2017-04-27 19:10 | NUR ---
RECEIVED REPORT FROM AM NURSE. PT RESTING IN BED, AOX4, AMBULATORY, ABLE TO VERBALIZE NEEDS. PT C/O TOLERABLE EPIGASTRIC/ABD PAIN AT THIS TIME, ALREADY MEDICATED BY AM NURSE. PT REPORTS BEING ABLE TO TOLERATE CLEAR LIQUID DIET, DENIES NAUSEA. BOWEL SOUNDS ACTIVE, LBM TODAY. IV ACCESS ASYMPTOMATIC, PATENT AND INTACT. IVF INFUSING WELL. DISCUSSED AND REVIEWED PLAN OF CARE WITH PT, PT VERBALIZED UNDERSTANDING. ALL NEEDS MET. SAFETY MEASURES ENSURED. CALL LIGHT WITHIN REACH.
[2017-04-27 20:00] VITALS: BP 129/71
--- NOTE | 2017-04-27 20:17 | NUR ---
BLOOD GLUCOSE 175, ADMINISTERED SLIDING SCALE HUMALOG 2UNITS SUBQ WITH SNACK AND EDUCATION. HELD DUE MED HUMULIN 50 UNITS SUBQ. ADMINISTERED REMAINING DUE MED WITH EDUCATION. PT VERBALIZED UNDERSTANDING, TOLERATED MEDS WELL. ALL NEEDS MET. IVF INFUSING WELL. SAFETY MEASURES ENSURED.
[2017-04-28] VITALS: BP 135/74
--- NOTE | 2017-04-28 | NUR ---
PT RESTING COMFORTABLY, PT REPORTS TOLERABLE ABD PAIN AFTER RECEIVING PAIN MED. ALL NEEDS MET. IVF INFUSING WELL. SAFETY MEASURES ENSURED.
[2017-04-28] MEDS: HYDROmorphone PFS 2 MG/ML SYR IVP PRN ×2 (04:52→09:10)
--- NOTE | 2017-04-28 04:52 | NUR ---
PT C/O ABD PAIN, SEE PAIN ASSESSMENT, ADMINISTERED DILAUDID 1MG IVP PRN WITH EDUCATION. PT VERBALIZED UNDERSTANDING TOLERATED MED WELL. ALL NEEDS MET. IVF INFUSING WELL. SAFETY MEASURES ENSURED. CALL LIGHT WITHIN REACH.
[2017-04-28] MEDS: INSULIN LISPRO SLIDING SCALE 100 UNITS/ML VIAL SUBQ PRN (06:24)
[2017-04-28] MEDS: BLOOD GLUCOSE MONITORING 1 DEV DEV FS SCH ×2 (06:25→12:07)
--- NOTE | 2017-04-28 06:25 | NUR ---
BLOOD GLUCOSE 186, INSULIN COVERAGE ADMINISTERED WITH EDUCATION. PT VERBALIZED UNDERSTANDING, TOLERATED MED WELL. ALL NEEDS MET. IVF INFUSING WELL. SAFETY MEASURES ENSURED.
[2017-04-28 06:32] LABS: BASOPHILS # (AUTO) 0.3 K/uL (0.00-0.22); BASOPHILS % (AUTO) 3.3 % (0.0-2.0); EOSINOPHILS # (AUTO) 0.2 K/uL (0-0.4); EOSINOPHILS % (AUTO) 2.4 % (0.0-4.0); HEMATOCRIT 34.7 % (36-48); HEMOGLOBIN 11.8 g/dL (12.0-16.0); LYMPHOCYTES # (AUTO) 3.5 K/uL (2.5-16.5); LYMPHOCYTES % (AUTO) 43.6 % (20.5-51.1); MEAN CORPUSCULAR HEMOGLOBIN 30 pg (27-31); MEAN CORPUSCULAR HGB CONC 34 g/dL (33-37); MEAN CORPUSCULAR VOLUME 88 fL (80-94); MONOCYTES # (AUTO) 0.7 K/uL (0.8-1.0); MONOCYTES % (AUTO) 8.6 % (1.7-9.3); NEUTROPHILS # (AUTO) 3.4 K/uL (1.8-7.7); NEUTROPHILS % (AUTO) 42.1 % (42.2-75.2); PLATELET COUNT (AUTO) 240 K/uL (140-450); RED BLOOD CELL COUNT(AUTO) 3.97 MIL/uL (4.20-5.40); RED CELL DISTRIBUTION WIDTH 14.2 % (11.6-13.7); WHITE BLOOD COUNT (AUTO) 8.1 K/uL (4.8-10.8)
--- NOTE | 2017-04-28 07:15 | NUR ---
ENDORSED PLAN OF CARE TO AM NURSE. CONDITION STABLE.
--- NOTE | 2017-04-28 07:17 | NUR ---
RECEIVED PATIENT REPORT AT BEDSIDE FROM NIGHT NURSE. PATIENT IS SLEEPING AND EASILY AROUSABLE TO VOICE AND SHOWS NO S/S OF ACUTE DISTRESS ON ROOM AIR. NOTED IV ON THE RT FA WITH IVF'S INFUSING WELL, IV IS PATENT AND INTACT. SKIN INTACT. STATES TOLERABLE ABD PAIN OF 5/10. PATIENT WAS DISCUSSED POC FOR TODAY, HOSPITAL ENVIRONMENT, CALL LIGHT USE FOR ASSISTANCE AND SHE VERBALIZED UNDERSTANDING. BED IN LOW POSITION WITH CALL LIGHT WITHIN REACH.
[2017-04-28 07:44] VITALS: BP 128/79
[2017-04-28 08:02] LABS: ANION GAP 12.4 (8-16); CARBON DIOXIDE 21.1 mmol/L (21-32); POTASSIUM 3.5 mmol/L (3.5-5.1)
[2017-04-28 08:03] LABS: ALBUMIN 2.7 g/dL (3.4-5.0); CREATININE 0.6 mg/dL (0.6-1.3); TOTAL BILIRUBIN 0.4 mg/dL (0.0-1.0)
[2017-04-28] MEDS ORDERED: FENOFIBRATE 48 MG TAB PO SCH (09:00)
[2017-04-28] MEDS: FAMOTIDINE 20 MG/2 ML VIAL IVP SCH (09:10)
[2017-04-28] MEDS: NACL 0.9% 1,000 ML IV SCH (09:20)
[2017-04-28] MEDS: ENOXAPARIN 40 MG/0.4 ML SYR SUBQ SCH (09:26)
[2017-04-28] MEDS: INSULIN NPH HUM/REG INSULIN HM 100 UNIT/ML 10 ML VIAL SUBQ SCH (09:27)
--- NOTE | 2017-04-28 09:29 | NUR ---
ADMINISTERED SCHEDULED MEDICATIONS. PATIENT SWALLOWED WITHOUT DIFFICULTY, BLOOD SUGAR IS 210, HUMULIN 70/30 50 UNITS SQ WAS GIVEN, PATIENT WAS EDUCATED IN S/S OF HYPOGLYCEMIA AND TO NOTIFY HCP IF SHE EXPERIENCES ANY SYMPTOMS. PATIENT ALSO C/O ABD PAIN 09/27 AND WAS GIVEN DILAUDID 1 MG IVP. WILL REASSESS PAIN IN ONE HR. PATIENTS BED IS IN LOW POSITION WITH CALL LIGHT WITHIN REACH. ALL NEEDS MET AT THIS TIME.
[2017-04-28] MEDS ORDERED: ATOR20TA PO (10:20)
--- NOTE | 2017-04-28 10:20 | NUR ---
PATIENT SHOWS NO S/S OF ACUTE DISTRESS ON ROOM AIR, TALKING ON THE PHONE. PATIENT STATES TOLERABLE PAIN OF 4/10 ABD PAIN. ALL NEEDS MET AT THIS TIME.
--- NOTE | 2017-04-28 12:14 | NUR ---
PATIENT IS SITTING UP AND EATING LUNCH AND TOLERATING DIET WELL. ALL NEEDS MET AT THIS TIME.
--- NOTE | 2017-04-28 12:30 | NUR ---
CM NOTE CONCURRENT REVIEW FAXED TO [facility] [phone] ANA # [phone]
--- NOTE | 2017-04-28 13:00 | NUR ---
PATIENT HAS BEEN DISCHARGED, ALL DISCHARGE INSTRUCTIONS GIVEN , ALL PAPERWORK SIGNED. ALL QUESTIONS ANSWERED. ALL BELONGINGS AND PRESCRIPTIONS IN PATIENT'S POSSESSION, IV DISCONTINUED WITH CANNULA INTACT. WRISTBANDS REMOVED. OFFERED PATIENT WHEELCHAIR AND SHE PREFERRED TO WALK OFF UNIT. PATIENT HAS STEADY GAIT. PATIENT LEFT IN STABLE CONDITION.
== END 2017-04-28 13:00 | disposition home or self-care (01) | DRG 282 ==
LOC: MED 12:09 → MTU 17:08
PROVIDERS: ADMIT Internal Medicine; ATTEND Internal Medicine
DX: K85.90 Acute pancreatitis without necrosis or infection, unspecified (principal); E44.1 Mild protein-calorie malnutrition; E83.42 Hypomagnesemia; E87.1 Hypo-osmolality and hyponatremia; E11.9 Type 2 diabetes mellitus without complications; K59.00 Constipation, unspecified; M54.9 Dorsalgia, unspecified; G89.29 Other chronic pain; E78.1 Pure hyperglyceridemia; E78.5 Hyperlipidemia, unspecified; Z88.6 Allergy status to analgesic agent; E87.6 Hypokalemia; Z87.891 Personal history of nicotine dependence; Z90.49 Acquired absence of other specified parts of digestive tract; Z82.49 Family history of ischemic heart disease and other diseases of the circulatory system; Z68.23 Body mass index [BMI] 23.0-23.9, adult
CPT/HCPCS: 36415; 71045; 80053; 81001; 82009; 82150; 82948; 83605; 83690; 83735; 84100; 84484; 84703; 85025; 85610; 87040; 87081; 93005; 96361; 96374; 96375; 96376; 99285; J1170; J1650; J1815; J2405; J3475; J3490; J7030; Q9967

== ENCOUNTER 2017-05-08 21:13 | Emergency (ER) | payer OTHER ==
[~2017-05-08] VITALS: Ht 157.5 cm; Wt 60.3 kg
[~2017-05-08 21:13] MED LIST changes: +ATOR20TA PO
[2017-05-08 21:45] VITALS: BP 160/114
--- NOTE | 2017-05-08 22:51 | NUR ---
AMBULATED TO ER BED 4
--- NOTE | 2017-05-08 23:00 | NUR ---
PT IS A 51 Y/O F WHO PRESENTED TO THE ED WITH C/O SHARP ABD PAIN X 2DAYS. PT STATES, "I WAS HERE AT THE HOSPITAL 2 WEEKS AGO AND I WAS ADMITTED FOR PANCREATITIS AND THEY TOLD ME TO COME BACK IF I HAD PAIN." PT STATES SHE HAS HAD N/V X 2 HOURS AND DIAREAH THIS AM. PT DENIES ANY FEVER OR CHILLS. PT IS AAOX4, RR EVEN/UNLABORED. NO S/S OF DISTRESS NOTED. ER MD DR. CHOI MADE AWARE. DAUGHTER AT BEDSIDE. PT STATES HER PAST MEDICAL HISTORY INCLUDES PANCREATITIS, DM, "BARTERS SYNDROM" AND HTN. PT STATES ALLERGIES TO BACLOFEN AND DIFLUCAN. BED IN LOWEST POSITION, WILL CONTINUE TO MONITOR
[2017-05-08] MEDS ORDERED: NACL 0.9% 1,000 ML IV ONE (23:40)
[2017-05-08] MEDS ORDERED: ONDANSETRON 4 MG/2 ML VIAL IVP ONE (23:40)
[2017-05-08] MEDS ORDERED: MORPHINE SULFATE 4 MG/ML SYR IVP ONE (23:50)
[2017-05-09 00:13] LABS: HEMATOCRIT 45.8 % (36-48); HEMOGLOBIN 15.1 g/dL (12.0-16.0); MEAN CORPUSCULAR HEMOGLOBIN 29 pg (27-31); MEAN CORPUSCULAR HGB CONC 33 g/dL (33-37); MEAN CORPUSCULAR VOLUME 87 fL (80-94); PLATELET COUNT (AUTO) 312 K/uL (140-450); RED BLOOD CELL COUNT(AUTO) 5.28 MIL/uL (4.20-5.40); RED CELL DISTRIBUTION WIDTH 14.5 % (11.6-13.7); WHITE BLOOD COUNT (AUTO) 10.9 K/uL (4.8-10.8)
[2017-05-09 00:24] LABS: APPEARANCE,URINE SL CLOUDY (CLEAR); BILIRUBIN,URINE NEGATIVE (NEGATIVE); BLOOD, URINE NEGATIVE (NEGATIVE); COLOR,URINE YELLOW (YELLOW); LEUKOCYTE ESTERASE ,URINE NEGATIVE (NEGATIVE); NITRITE, URINE NEGATIVE (NEGATIVE); UGLUCOSE 3+ (NEGATIVE)
[2017-05-09 00:25] LABS: BARBITURATE, URINE NEG. ng/ml (NEG <=200); BENZODIAZEPINE, URINE NEG. ng/mL (NEG <=200); CANNABINOID, URINE NEG. ng/mL (NEG <=50); COCAINE, URINE NEG. ng/mL (NEG <=300); OPIATE, URINE NEG. ng/mL (NEG <=2000); PHENCYCLIDINE SCREEN,URINE NEG. ng/mL (NEG <=25)
[2017-05-09 00:36] LABS: ALBUMIN 3.7 g/dL (3.4-5.0); ANION GAP 17.1 (8-16); CARBON DIOXIDE 20.5 mmol/L (21-32); CREATININE 0.8 mg/dL (0.6-1.3); POTASSIUM 3.6 mmol/L (3.5-5.1); TOTAL BILIRUBIN 0.4 mg/dL (0.0-1.0)
[2017-05-09] MEDS ORDERED: NACL 0.9% 1,000 ML IV ONE ×3 (01:00→07:30)
--- NOTE | 2017-05-09 02:00 | NUR ---
PT RESTING COMFORTABLY IN BED NO S/S OF DISTRESS NOTED. VSS STABLE
[2017-05-09 02:54] LABS: RBC,URINE NONE SEEN /HPF (0-5); WBC,URINE 0-5 (RARE) /HPF (0-5)
--- NOTE | 2017-05-09 04:00 | NUR ---
PT RESTING IN BED. RR EVEN/UNLABORED. DAUGHTER AT BEDSIDE
--- NOTE | 2017-05-09 07:00 | NUR ---
Pt report given to SYDNEY PITTMAN. Transfer of care at this time.
--- NOTE | 2017-05-09 07:05 | NUR ---
PT APPEARS TO BE RESTING COMFORTABLY IN BED; RR EVEN/UNLABORED; POSITIONED FOR COMFORT; WILL CONTINUE TO MONITOR.
[2017-05-09] MEDS ORDERED: MORPHINE SULFATE 5 MG/ML VIAL IVP ONE (07:30)
[2017-05-09] MEDS ORDERED: ONDANSETRON 4 MG/2 ML VIAL IVP ONE (07:30)
--- NOTE | 2017-05-09 08:18 | NUR ---
PT STATES " I FEEL BETTER", STATES PAIN 4/10 AT THIS TIME; VSS AT THIS TIME; RR EVEN/UNLABORED; WILL CONTINUE TO MONITOR.
--- NOTE | 2017-05-09 09:10 | NUR ---
IV removed to rt hand and rt a/c, catheter intact and site benign. Applied folded 4x4 gauze and tape to stop bleeding. Pt tolerated procedure well.
[2017-05-09 09:14] VITALS: BP 131/80
--- NOTE | 2017-05-09 09:14 | NUR ---
Patient discharged with v/s stable. Written and verbal after care instructions given and explained. Patient alert, oriented and verbalized understanding of instructions. Ambulatory with steady gait. All questions addressed prior to discharge. ID band removed. Patient advised to follow up with PMD. Rx of ZOFRAN ODT 4MG given. Patient educated on indication of medication including possible reaction and side effects. Opportunity to ask questions provided and answered.
== END 2017-05-09 09:14 | disposition home or self-care (01) ==
LOC: MED 21:13
DX: N28.89 Other specified disorders of kidney and ureter (principal); E86.0 Dehydration; E11.65 Type 2 diabetes mellitus with hyperglycemia; E26.81 Bartter's syndrome; Z88.6 Allergy status to analgesic agent
CPT/HCPCS: 36415; 36600; 74177; 80053; 80305; 81001; 82009; 82150; 82550; 82803; 82948; 83690; 84484; 85025; 96361; 96374; 96375; 96376; 99285; J2270; J2405; J7030; Q9967; 81025

== ENCOUNTER 2017-05-10 21:15 | Emergency (ER) | payer OTHER ==
[~2017-05-10] VITALS: Ht 157.5 cm; Wt 61.3 kg
[2017-05-10 21:31] VITALS: BP 121/70
--- NOTE | 2017-05-10 22:10 | NUR ---
PT AMBULATED TO ER BED 3
--- NOTE | 2017-05-10 22:16 | NUR ---
Pt presents to ED with epigastric abdominal pain radiating to left lower back 12/28 x1 week. Pt states here on 05/02/17 for same pain and is returning per medical advice. A&Ox4 in POC, daughter at bedside. ER MD aware. Continue to monitor.
--- NOTE | 2017-05-10 22:46 | NUR ---
PT EVAL BY ANU WHITMORE
[2017-05-10] MEDS ORDERED: MORPHINE SULFATE 2 MG/ML SYR IVP ONE (22:50)
[2017-05-10] MEDS ORDERED: ONDANSETRON 4 MG/2 ML VIAL IVP ONE (22:50)
[2017-05-10] MEDS ORDERED: NACL 0.9% 1,000 ML IV ONE (22:50)
[2017-05-10 23:25] LABS: ANION GAP 16.3 (8-16); CARBON DIOXIDE 20.9 mmol/L (21-32); CREATININE 0.6 mg/dL (0.6-1.3); POTASSIUM 3.2 mmol/L (3.5-5.1)
[2017-05-10 23:30] LABS: HEMATOCRIT 42.6 % (36-48); HEMOGLOBIN 14.2 g/dL (12.0-16.0); RED BLOOD CELL COUNT(AUTO) 4.82 MIL/uL (4.20-5.40); WHITE BLOOD COUNT (AUTO) 10.8 K/uL (4.8-10.8)
[2017-05-10 23:31] LABS: ALBUMIN 3.5 g/dL (3.4-5.0); MEAN CORPUSCULAR HEMOGLOBIN 30 pg (27-31); MEAN CORPUSCULAR HGB CONC 33 g/dL (33-37); MEAN CORPUSCULAR VOLUME 88 fL (80-94); NEUTROPHILS % (AUTO) 60.8 % (42.2-75.2); PLATELET COUNT (AUTO) 283 K/uL (140-450); RED CELL DISTRIBUTION WIDTH 15.5 % (11.6-13.7); TOTAL BILIRUBIN 0.3 mg/dL (0.0-1.0)
[2017-05-10 23:32] LABS: BASOPHILS # (AUTO) 0.1 K/uL (0.00-0.22); BASOPHILS % (AUTO) 1.2 % (0.0-2.0); EOSINOPHILS # (AUTO) 0.1 K/uL (0-0.4); LYMPHOCYTES # (AUTO) 3.4 K/uL (2.5-16.5); MONOCYTES # (AUTO) 0.5 K/uL (0.8-1.0); NEUTROPHILS # (AUTO) 6.5 K/uL (1.8-7.7)
[2017-05-11 00:10] VITALS: BP 162/85
--- NOTE | 2017-05-11 00:10 | NUR ---
Note jailene in EDM - 05/11/17 at 0026 by MILENA Patient discharged with v/s stable. Written and verbal after care instructions given and explained. Patient alert, oriented and verbalized understanding of instructions. Ambulatory with steady gait. All questions addressed prior to discharge. ID band removed. Patient advised to follow up with PMD. Rx of Tramadol given. Patient educated on indication of medication including possible reaction and side effects. Opportunity to ask questions provided and answered.
--- NOTE | 2017-05-11 00:10 | NUR ---
Patient discharged with v/s stable, pain decreased and no nausea. Written and verbal after care instructions given and explained. Patient alert, oriented and verbalized understanding of instructions. Ambulatory with steady gait. All questions addressed prior to discharge. ID band removed. Patient advised to follow up with PMD. Rx of Tramadol given. Patient educated on indication of medication including possible reaction and side effects. Opportunity to ask questions provided and answered.
--- NOTE | 2017-05-17 06:57 | NUR ---
Late entry for 05/10/17 at 23:02. IV of 1L of NS given at 999ml/hr Start time of IV at 2251 End time of IV at 2351
== END 2017-05-11 00:10 | disposition home or self-care (01) ==
LOC: MED 21:15
DX: R10.9 Unspecified abdominal pain (principal); R11.2 Nausea with vomiting, unspecified; E11.9 Type 2 diabetes mellitus without complications; E26.81 Bartter's syndrome; Z88.8 Allergy status to other drugs, medicaments and biological substances
CPT/HCPCS: 36415; 80053; 83690; 85025; 96361; 96374; 96375; 99284; J2270; J2405; J7030

== ENCOUNTER 2017-09-13 15:28 | Emergency (ER) | payer OTHER ==
[~2017-09-13] VITALS: Ht 157.5 cm; Wt 59.0 kg
[~2017-09-13 15:28] MED LIST changes: -BACL10TA4 PO; -METF500T PO
[2017-09-13 15:35] VITALS: BP 157/107
--- NOTE | 2017-09-13 15:50 | NUR ---
52f bib daughter with c/o 8/10 intermittent "sharp" midsternal chest pain x 3 days, progressively getting worse with productive cough with yellow phelgm. Patient also report of mid abdomen but denies n/v/d or fevers. Patient is aox4 to place, person, place, and situation. Patient denies any SOB. RR are even and unlabored. Skin is warm/dry/color apprioriaiate for age. Blood pressure elevated but otherwirse vitals stable. Patient changed into gown and place to cardiac, bp, pulse and pulse ox monitoring. Will continue to monitor.
--- NOTE | 2017-09-13 15:50 | NUR ---
PATIENT AMBULATED TO BED 4.
--- NOTE | 2017-09-13 15:50 | NUR ---
XRAY BY BEDSIDE
[2017-09-13 18:03] LABS: BASOPHILS # (AUTO) 0.2 K/uL (0.00-0.22); BASOPHILS % (AUTO) 1.8 % (0.0-2.0); EOSINOPHILS # (AUTO) 0.1 K/uL (0-0.4); EOSINOPHILS % (AUTO) 0.9 % (0.0-4.0); HEMOGLOBIN 15.5 g/dL (12.0-16.0); LYMPHOCYTES # (AUTO) 4.2 K/uL (2.5-16.5); LYMPHOCYTES % (AUTO) 40.6 % (20.5-51.1); MEAN CORPUSCULAR HEMOGLOBIN 30 pg (27-31); MEAN CORPUSCULAR HGB CONC 34 g/dL (33-37); MEAN CORPUSCULAR VOLUME 88.7 fL (80-94); MONOCYTES # (AUTO) 0.4 K/uL (0.8-1.0); MONOCYTES % (AUTO) 3.8 % (1.7-9.3); NEUTROPHILS # (AUTO) 5.5 K/uL (1.8-7.7); NEUTROPHILS % (AUTO) 52.9 % (42.2-75.2); PLATELET COUNT (AUTO) 272 K/uL (140-450); RED BLOOD CELL COUNT(AUTO) 5.18 MIL/uL (4.20-5.40); WHITE BLOOD COUNT (AUTO) 10.4 K/uL (4.8-10.8)
[2017-09-13 18:17] LABS: ANION GAP 14.5 (8-16); CREATININE 0.9 mg/dL (0.6-1.3); POTASSIUM 3.5 mmol/L (3.5-5.1)
[2017-09-13 18:22] LABS: ALBUMIN 3.8 g/dL (3.4-5.0); TOTAL BILIRUBIN 0.3 mg/dL (0.0-1.0)
[2017-09-13 18:48] LABS: PROTHROMBIN TIME 10.8 secs (10.8-13.4)
[2017-09-13] MEDS ORDERED: NACL 0.9% 250 ML IV ONE (19:00)
[2017-09-13] MEDS ORDERED: ONDANSETRON 4 MG/2 ML VIAL IVP ONE (19:00)
--- NOTE | 2017-09-13 19:00 | NUR ---
REPORT RECV'D FROM TISHA PITTMAN
[2017-09-13] MEDS ORDERED: KETOROLAC 30 MG/ML VIAL IM ONE (19:25)
[2017-09-13] MEDS ORDERED: ALUMINUM HYD/MAG/SIMETHICONE 30 ML UDC PO ONE (19:50)
--- NOTE | 2017-09-13 20:00 | NUR ---
PT ON [facility] RESTING IN NO ACUTE DISTRESS, WILL CONTINUE TO MONITOR CLOSELY. NO IDENTIFIED REQUESTS AT THIS TIME.
[2017-09-13 20:25] LABS: AMYLASE 14 U/L (25-115); LIPASE 68 U/L (73-393)
--- NOTE | 2017-09-13 21:00 | NUR ---
PT ON [facility] ASLEEP IN NO ACUTE DISTRESS, WILL CONTINUE TO MONITOR CLOSELY. NO IDENTIFIED REQUESTS AT THIS TIME.
[2017-09-13 21:20] LABS: APPEARANCE,URINE CLEAR (CLEAR); BILIRUBIN,URINE NEGATIVE (NEGATIVE); BLOOD, URINE NEGATIVE (NEGATIVE); COLOR,URINE YELLOW (YELLOW); LEUKOCYTE ESTERASE ,URINE NEGATIVE (NEGATIVE); NITRITE, URINE NEGATIVE (NEGATIVE); PH,URINE 6.5 (5.0-9.0); UGLUCOSE 3+ (NEGATIVE)
[2017-09-13 21:24] LABS: RBC,URINE 0-5 (RARE) /HPF (0-5); WBC,URINE 0-5 (RARE) /HPF (0-5)
[2017-09-13] MEDS ORDERED: LACTULOSE 20 GM/30 ML UDC PO ONE (21:35)
--- NOTE | 2017-09-13 21:39 | NUR ---
LACTULOSE NOT AVAILABLE IN [facility], MANAGER SECURITY AND SAFETY NOTIFIED.
[2017-09-13 21:48] VITALS: BP 137/98
[2017-09-13] MEDS ORDERED: LACTULOSE 20 GM/30 ML UDC ONE (21:48)
== END 2017-09-13 21:48 | disposition home or self-care (01) ==
LOC: MED 15:28
DX: K59.00 Constipation, unspecified (principal); R00.2 Palpitations; I10 Essential (primary) hypertension; E11.9 Type 2 diabetes mellitus without complications; Z88.6 Allergy status to analgesic agent; Z88.8 Allergy status to other drugs, medicaments and biological substances
CPT/HCPCS: 36415; 71045; 74018; 80053; 81001; 82150; 83690; 83880; 84484; 85025; 85610; 85730; 93005; 96372; 96374; 99285; J1885; J2405; J7030

== ENCOUNTER 2019-12-26 13:31 | Emergency (ER) | payer OTHER ==
[~2019-12-26] VITALS: Ht 157.5 cm; Wt 50.3 kg
[~2019-12-26 13:31] MED LIST changes: -ACET-2869 PO; +HYDR-5122 PO
[2019-12-26 13:40] VITALS: BP 123/89
--- NOTE | 2019-12-26 13:47 | NUR ---
PATIENT PRESENTS TO ED WITH PAIN TO RIGHT KNEE RADIATING UP BACK ON RIGHT SIDE . PT STATES SHE TRIPPED OVER DOG WHILE WALKING AND FELL ON TO LEFT KNEE, DENIES ANY HEAD TRAUMA. PATIENT STATES HER PRIMARY PAIN IS AT HER LOWER BACK, BUT HER RIGHT KNEE IS ALSO GIVING HER PAIN. NO DEFORMITIES NOTED AT THIS TIME. . DENIES N/V/D; SKIN IS PINK/WARM/DRY; AAOX4 WITH EVEN AND STEADY GAIT; LUNGS CLEAR BL; HR EVEN AND REGULAR; PT DENIES ANY FEVER, CP, SOB, OR COUGH AT THIS TIME; PATIENT STATES PAIN OF 8/10 AT THIS TIME; VSS; PATIENT POSITIONED FOR COMFORT; HOB ELEVATED; BEDRAILS UP X2; BED DOWN. ER MD MADE AWARE OF PT STATUS.
[2019-12-26] MEDS ORDERED: HYDROcodone/APAP 5/325 MG 1 TAB TAB PO ONE (13:50)
--- NOTE | 2019-12-26 14:10 | NUR ---
PT RESTING IN BED, SIDE RAIL X1
[2019-12-26 14:40] VITALS: BP 118/84
--- NOTE | 2019-12-26 14:41 | NUR ---
Patient discharged with v/s stable. Written and verbal after care instructions given and explained. Patient alert, oriented and verbalized understanding of instructions. Ambulatory with steady gait. All questions addressed prior to discharge. ID band removed. Patient advised to follow up with PMD. Rx of Ibuprofen 400mg and [place] 5mg-325mg given. Patient educated on indication of medication including possible reaction and side effects. Opportunity to ask questions provided and answered.
== END 2019-12-26 14:41 | disposition home or self-care (01) ==
LOC: MED 13:31
DX: M51.36 Other intervertebral disc degeneration, lumbar region (principal); M54.5 Low back pain; E11.9 Type 2 diabetes mellitus without complications; F17.210 Nicotine dependence, cigarettes, uncomplicated; I10 Essential (primary) hypertension; I51.89 Other ill-defined heart diseases; N28.9 Disorder of kidney and ureter, unspecified; Z88.6 Allergy status to analgesic agent; W19.XXXA Unspecified fall, initial encounter; Y93.89 Activity, other specified; Y92.89 Other specified places as the place of occurrence of the external cause; Y99.8 Other external cause status
CPT/HCPCS: 72100; 72170; 99284

== ENCOUNTER 2020-05-16 20:08 | Emergency (ER) | payer OTHER ==
[~2020-05-16] VITALS: Ht 160 cm; Wt 52.6 kg
[2020-05-16 20:14] VITALS: BP 164/91
--- NOTE | 2020-05-16 20:21 | NUR ---
PATIENT AMBUALTED TO RESTROOM WITH STEADY GAIT.
--- NOTE | 2020-05-16 20:25 | NUR ---
PATIENT BIB SELF FOR C/O DIZZYNESS AND BLURRED VISION X 3 DAYS. PATIENT STATES GRACE 10/28 COMES AND GOES. PT [id number], PERNIDIA. PMH: DM, 2 HEART STENTS ALLERGY: BACLOFEN, DICOFLENAC Addendum: 05/16/20 at 2057 by [email or web address] DENIES ANY N/V. PT ALSO COMPLAINING OF BUMP ON HEAD, SOME SCABS NOTED.
--- NOTE | 2020-05-16 20:50 | NUR ---
DR MORROW AT BEDSIDE ASSESSING PATIENT
[2020-05-16] MEDS ORDERED: KETOROLAC 60 MG/2 ML VIAL IM ONE (21:00)
[2020-05-16] MEDS ORDERED: IBUP-2213 PO (21:37)
[2020-05-16] MEDS ORDERED: CEPH500C16 PO (21:37)
[2020-05-16 21:44] VITALS: BP 164/91
--- NOTE | 2020-05-16 21:45 | NUR ---
Patient discharged with v/s stable. Written and verbal after care instructions given and explained. Patient alert, oriented and verbalized understanding of instructions. Ambulatory with steady gait. All questions addressed prior to discharge. ID band removed. Patient advised to follow up with PMD. Rx of IBUPROFEN, CEFALEXIN, ATORVASTATIN given. Patient educated on indication of medication including possible reaction and side effects. Opportunity to ask questions provided and answered.
== END 2020-05-16 21:45 | disposition home or self-care (01) ==
LOC: MED 20:08
DX: L03.811 Cellulitis of head [any part, except face] (principal); I11.9 Hypertensive heart disease without heart failure; E11.9 Type 2 diabetes mellitus without complications; Z87.448 Personal history of other diseases of urinary system; Z88.6 Allergy status to analgesic agent; Z79.899 Other long term (current) drug therapy
CPT/HCPCS: 81002; 96372; 99283; J1885